=== PATIENT | female | born 1975 | race Caucasian/White ===

== ENCOUNTER 2021-08-06 21:17 | Observation (INO) | payer MEDICAID, SELFPAY ==
[2021-08-06 21:42] VITALS: BP 140/89; PULSE 64; RESP 18; TEMP 36.6; O2SAT 99; BMI 30.7
[2021-08-06 22:07] LABS: Glucose Point of Care 124 mg/dL (70-110)
--- NOTE | 2021-08-06 22:09 | XRR_ITS ---
PROCEDURE INFORMATION: Exam: XR Right Foot Exam date and time: 08/06/2021 10:09 PM Age: 45 years old Clinical indication: Condition or disease; Other: Chronic diabetic infection; Prior surgery; Surgery date: 6+ months; Surgery type: Hardware placed in great toe November 2020; Additional info: Chronic foot infection TECHNIQUE: Imaging protocol: XR Right foot. Views: 3 or more views. COMPARISON: No relevant prior studies available. FINDINGS: No old studies are available for comparison purposes. The patient is status post fusion between the 1st metatarsal and proximal phalanx with plate and screws. There is some irregularity along the 1st MTP joint. There is no acute fracture. The remaining digits are well maintained. There is no periosteal reaction. There is no acute bony destruction. There is mild soft tissue swelling. XR/XR foot RT min 3V* [id number] IMPRESSION: 1. Postop changes involving the 1st MTP joint. There is some irregularity along the joint space. Comparison to old studies would be helpful. Please note plain films are somewhat insensitive for the evaluation of the osteomyelitis. 2. There is no acute fracture, periosteal reaction or acute bony destruction.
--- NOTE | 2021-08-06 22:09 | XRR_ITS ---
PROCEDURE INFORMATION: Exam: XR Chest Exam date and time: 08/06/2021 10:09 PM Age: 45 years old Clinical indication: Condition or disease; Other: Diabetic complications; Prior surgery; Surgery date: 6+ months; Surgery type: Stimulator placed; Additional info: Hypoglycemia TECHNIQUE: Imaging protocol: XR of the chest. Views: 1 view. COMPARISON: No relevant prior studies available. FINDINGS: The lungs are clear of infiltrate. There are no pleural effusions or pneumothorax. The heart size and pulmonary vascularity are normal. Stimulator leads are seen within the thoracic spine. XR/XR chest 1V portable [id number] IMPRESSION: No active disease.
--- NOTE | 2021-08-06 22:35 | W.ED.GENADLT ---
HPI - General Adult General: Chief complaint: ER Hold Stated complaint: diabetic issues Time Seen by Provider: 08/06/21 21:40 History of Present Illness: 45-year-old female whom I do not have a record of previous visits. She presents with persistent low blood sugar since last night. She notes that she has had pancreas surgery in the past for a pancreatic mass, and has episodes with hypoglycemia. She has had for glucagon shots since last night to keep her sugar up. She notes a couple of episodes of blood sugars in the 30s and 40s today despite this, with seizures during those episodes. She notes pain all over following her seizures. She called an ambulance as she was unable to keep her blood sugar up. She says there are times when her blood sugar can drop by one-point per minute. She presents on a D10 drip. Onset (ago): hour(s) Location: head and lower extremity Severity: moderate Quality: other Pain Consistency: constant Relieving factors: none Exacerbating factors: none Associated symptoms: Reports confusion (With low blood sugar episodes), diaphoresis, decreased appetite, headache(s), nausea, seizures and weakness (Generalized); Deny chest pain, cough, dyspnea, fevers/chills, palpitations, short of breath or vomiting Review of Systems Const: Reports: diaphoresis Card: Denies: chest pain or palpitations Resp: Denies: dyspnea GI: Reports: nausea; Denies: vomiting Neuro: Reports: headache(s) and confusion (With low blood sugar episodes) [facility] ED PFSH: Medical History (Updated 08/07/21 @ 06:07 by Roberth King MD) History of depression History of factor V Leiden mutation History of hypoglycemia Pancreatic neoplasm Surgical History History of cholecystectomy Family History (Updated 08/07/21 @ 06:06 by Roberth King MD) Mother CAD (coronary artery disease) Father Diabetes Social History (Updated 08/07/21 @ 06:06 by Roberth King MD) Smoking and tobacco status: never smoked Alcohol intake: never Substance/Drug Use: never Physical Exam Const: COMMON NORMALS: patient oriented x3 GENERAL APPEARANCE: cooperative; not frail appearing HENMT: COMMON NORMALS: normocephalic, atraumatic and Normal external nose present HEAD & SCALP: normocephalic and atraumatic NOSE: Normal external nose present Eye: COMMON NORMALS: Equal, round and reactive pupils present and EOMs intact bilaterally PUPIL: Yes Equal, round and reactive pupils present Chest: COMMONS NORMALS: normal inspection of the chest Resp: COMMON NORMALS: normal respiratory effort, No use of accessory muscles and clear to auscultation bilaterally AUSCULTATION: clear to auscultation bilaterally Cardio: COMMON NORMALS: regular rate and regular rhythm RATE: regular rate RHYTHM: regular rhythm GI: COMMON NORMALS: Normal to inspection, nondistended, normoactive bowel sounds present and Soft to palpation PALPATION: Yes Soft to palpation and Yes Tenderness to palpation present (GI) (Minimal epigastric) Extremity: NARRATIVE EXTREMITY EXAM: Exam of the right foot reveals a surgical scar over her right first MTP. There is tenderness with some swelling here. There is no redness or warmth. She has good capillary refill. Neuro: COMMON NORMALS: patient oriented x3 Course Consultations: Consultation #1: mason Vital Signs: Vital signs: Vital Signs Temperature 98.2 F 08/07/21 20:00 Pulse Rate 68 08/07/21 20:00 Respiratory Rate 17 08/07/21 20:00 Blood Pressure 154/85 08/07/21 20:00 Pulse Oximetry 100 08/07/21 20:00 [facility] - General Adult Medical Decision Making 46-year-old female with persistent hypoglycemia. CBC is normal. Potassium is 3.4. Other labs appear stable. While on D10, sugars are staying relatively stable, not necessarily increasing. We shot the D10 off, and watch her sugar steadily fall over 2 hours to 60. She received an amp of D50 with increased blood sugar. D10 was placed back on the patient at maintenance. She will have to be observed, as her sugar is not staying up appropriately. Hospitalist agreed to observe. Lab Data : 08/06/21 22:57 08/06/21 22:57 Radiology Impressions Chest X-Ray 08/06/21 22:09 IMPRESSION: No active disease. Foot X-Ray 08/06/21 22:09 IMPRESSION: 1. Postop changes involving the 1st MTP joint. There is some irregularity along the joint space. Comparison to old studies would be helpful. Please note plain films are somewhat insensitive for the evaluation of the osteomyelitis. 2. There is no acute fracture, periosteal reaction or acute bony destruction. Abdomen/Pelvis CT 08/07/21 05:19 IMPRESSION: Small amount of fluid noted in the colon. No dilated bowel loops. No high-grade obstruction. Correlate clinically for history of diarrheal illness. Laboratory Results WBC 9.6 10^3/uL (4.0-10.0) 08/06/21 22:57 RBC 4.54 10^6/uL (4.1-5.3) 08/06/21 22:57 Hgb 13.9 g/dL (11.5-15.3) 08/06/21 22:57 Hct 41.7 % (37.0-47.0) 08/06/21 22:57 MCV 91.9 fl (81-99) 08/06/21 22:57 MCH 30.6 pg (28.0-34.0) 08/06/21 22:57 MCHC 33.3 g/dL (30.0-36.0) 08/06/21 22:57 RDW 14.0 % (12.1-15.1) 08/06/21 22:57 Plt Count 211 10^3/cmm (130-400) 08/06/21 22:57 MPV 11.8 fL (7.4-10.4) H 08/06/21 22:57 Neut % (Auto) 54.5 % 08/06/21 22:57 Lymph % (Auto) 37.1 % 08/06/21 22:57 Mccormick % (Auto) 6.2 % 08/06/21 22:57 Eos % (Auto) 1.7 % 08/06/21 22:57 Baso % (Auto) 0.3 % 08/06/21 22:57 Neut # (Auto) 5.21 10^3/uL (1.8-7.7) 08/06/21 22:57 Lymph # (Auto) 3.6 10^3/uL (0.8-4.8) 08/06/21 22:57 Mccormick # (Auto) 0.6 10^3/uL (0.2-0.9) 08/06/21 22:57 Eos # (Auto) 0.2 10^3/uL (0.0-0.8) 08/06/21 22:57 Baso # (Auto) 0.0 10^3/uL (0.0-0.1) 08/06/21 22:57 Nucleated RBC % (auto) 0 % 08/06/21 22:57 Nucleated RBCs # 0.0 /100WBC 08/06/21 22:57 PT 12.80 SECONDS (12.1-14.9) 08/06/21 22:57 INR 0.94 (0.8-1.2) 08/06/21 22:57 Sodium 140 mmol/L (136-145) 08/06/21 22:57 Potassium 3.4 mmol/L (3.5-5.1) L 08/06/21 22:57 Chloride 107 mmol/L (98-107) 08/06/21 22:57 Carbon Dioxide 23 mmol/L (22-29) 08/06/21 22:57 Anion Gap 13.4 (5-19) 08/06/21 22:57 BUN 9 mg/dL (6-20) 08/06/21 22:57 Creatinine 0.7 mg/dL (0.5-0.9) 08/06/21 22:57 GFR Calculation 91.3 mL/min (90-130) 08/06/21 22:57 Glucose 103 mg/dL (65-115) 08/06/21 22:57 POC Glucose 194 mg/dL (70-110) H 08/07/21 05:13 Estimat Average Glucose 126 08/06/21 22:57 Hemoglobin A1c 6.0 % (4.0-6.0) 08/06/21 22:57 Calculated Osmolality 289 mOsm/kg (285-295) 08/06/21 22:57 Lactate 0.8 mmol/L (0.5-2.2) 08/06/21 22:57 Calcium 8.3 mg/dL (8.5-10.5) L 08/06/21 22:57 Total Bilirubin 0.3 mg/dL (0.15-1.2) 08/06/21 22:57 AST 16 U/L (0-32) 08/06/21 22:57 ALT 25 U/L (0-33) 08/06/21 22:57 Alkaline Phosphatase 97 IU/L (35-105) 08/06/21 22:57 C-Reactive Protein 2.3 mg/L (0.0-4.9) 08/06/21 22:57 Total Protein 6.5 g/dL (6.6-8.7) L 08/06/21 22:57 Albumin 4.0 g/dL (3.5-5.2) 08/06/21 22:57 Globulin 2.5 g/dL (1.3-4.6) 08/06/21 22:57 Amylase 27 U/L (28-100) L 08/06/21 22:57 Lipase 18 U/L (13-60) 08/06/21 22:57 Lipase Cancelled 08/06/21 22:57 Procalcitonin 0.43 ng/mL (0-0.5) 08/06/21 22:57 TSH 1.69 uIU/mL (0.27-4.20) 08/06/21 22:57 Urine Color Straw (Yellow) 08/06/21 21:23 Urine Appearance Clear (CLEAR) 08/06/21 21:23 Urine pH 6.5 (5-7) 08/06/21 21:23 Ur Specific Bradford 1.005 (1.005-1.030) 08/06/21 21:23 Urine Protein Neg (Negative) 08/06/21 21:23 Urine Glucose (UA) Norm (Normal) 08/06/21 21:23 Urine Ketones Negative (Negative) 08/06/21 21:23 Urine Blood Neg (Negative) 08/06/21 21:23 Urine Nitrate Negative (Negative) 08/06/21 21:23 Urine Bilirubin Neg (Negative) 08/06/21 21:23 Urine Urobilinogen Norm mg/dL (Negative) 08/06/21 21:23 Ur Leukocyte Esterase Negative (Negative) 08/06/21 21:23 Discharge Plan Discharge Patient Disposition: Admitted As Inpatient Admit Provider: Roberth King Condition: Stable Coding Level of Care Code ED Clerical Dentist Assistant for Chg Fwd Exam Detailed
[2021-08-06] MEDS: dextrose 10% 1,000 ML 125 ML IV (23:00)
[2021-08-06 23:05] LABS: Basophils % 0.3 %; Eosinophils # 0.2 10^3/uL (0.0-0.8); Eosinophils % 1.7 %; Hematocrit 41.7 % (37.0-47.0); Hemoglobin 13.9 g/dL (11.5-15.3); Lymphocytes # 3.6 10^3/uL (0.8-4.8); Lymphocytes % 37.1 %; Mean Corpuscular HGB Conc 33.3 g/dL (30.0-36.0); Mean Corpuscular Hemoglobin 30.6 pg (28.0-34.0); Mean Corpuscular Volume 91.9 fl (81-99); Mean Platelet Volume 11.8 fL (7.4-10.4); Monocytes # 0.6 10^3/uL (0.2-0.9); Monocytes % 6.2 %; Neutrophils # 5.21 10^3/uL (1.8-7.7); Neutrophils % 54.5 %; Nucleated Red Blood Cells % 0 %; Platelet Count 211 10^3/cmm (130-400); Red Blood Count 4.54 10^6/uL (4.1-5.3); White Blood Count 9.6 10^3/uL (4.0-10.0)
[2021-08-06 23:21] LABS: Lactate (Lactic Acid level) 0.8 mmol/L (0.5-2.2)
[2021-08-06 23:25] LABS: Alanine Aminotransferase 25 U/L (0-33); Alkaline Phosphatase 97 IU/L (35-105); Anion Gap 13.4 (5-19); Aspartate Amino Transferase 16 U/L (0-32); Blood Urea Nitrogen 9 mg/dL (6-20); C Reactive Protein 2.3 mg/L (0.0-4.9); Calcium 8.3 mg/dL (8.5-10.5); Carbon Dioxide 23 mmol/L (22-29); Chloride 107 mmol/L (98-107); Globulin 2.5 g/dL (1.3-4.6); Glomerular Filtration Rate 91.3 mL/min (90-130); Glucose 103 mg/dL (65-115); Lipase 18 U/L (13-60); Osmolality Calculated 289 mOsm/kg (285-295); Potassium 3.4 mmol/L (3.5-5.1); Sodium 140 mmol/L (136-145); Total Bilirubin 0.3 mg/dL (0.15-1.2); Total Protein 6.5 g/dL (6.6-8.7)
[2021-08-06 23:32] LABS: Procalcitonin 0.43 ng/mL (0-0.5)
[2021-08-06 23:40] LABS: Slide Review Slide Review Perform
[2021-08-06 23:48] LABS: INR 0.94 (0.8-1.2)
[2021-08-07] VITALS (10 sets, daily range): BP systolic 117–154; BP diastolic 65–90; PULSE 67–88; RESP 16–20; TEMP 36.7–36.8; O2SAT 94–100; BMI 30.7
[2021-08-07] MEDS: morphine 4 mg/mL SDV 1 mL IVP ×2 (00:27→06:09)
[2021-08-07 00:58] LABS: Glucose Point of Care 188 mg/dL (70-110)
[2021-08-07 01:45] LABS: Add Urine Microscopic? NO; Charge for UA Resulting for Rev
[2021-08-07 01:53] LABS: Bilirubin Urine Neg (Negative); Blood Urine Neg (Negative); Glucose Urine UA Norm (Normal); Ketones Urine Negative (Negative); Leukocyte Esterase Urine Negative (Negative); Nitrate Urine Negative (Negative); Protein Urine Neg (Negative); Specific Gravity, Urine 1.005 (1.005-1.030); Urine Appearance Clear (CLEAR); Urine Color Straw (Yellow); Urobilinogen Urine Norm (Negative); pH Urine 6.5 (5-7)
[2021-08-07 02:46] LABS: Glucose Point of Care 114 mg/dL (70-110)
[2021-08-07] MEDS: dextrose 50% syringe 50 mL (04:00)
[2021-08-07 04:48] LABS: Glucose Point of Care 60 mg/dL (70-110)
[2021-08-07 05:18] LABS: Glucose Point of Care 194 mg/dL (70-110)
--- NOTE | 2021-08-07 05:19 | CTR_ITS ---
PROCEDURE INFORMATION: Exam: CT Abdomen And Pelvis With Contrast Exam date and time: 08/07/2021 5:19 AM Age: 46 years old Clinical indication: Abdominal pain; Localized; Right upper quadrant (ruq); Prior surgery; Surgery type: Gb. Csection. Hysterectomy. ; Patient HX: C/O ruq pain. ; Additional info: Ruq pain per Dr. King TECHNIQUE: Imaging protocol: Computed tomography of the abdomen and pelvis with contrast. Radiation optimization: All CT scans at this facility use at least one of these dose optimization techniques: automated exposure control; mA and/or kV adjustment per patient size (includes targeted exams where dose is matched to clinical indication); or iterative reconstruction. Contrast material: OMNI 300; Contrast volume: 95 ml; Contrast route: INTRAVENOUS (IV); COMPARISON: CR (CHEST, ) 08/06/2021 10:18 PM RADIATION DOSE METRICS: Total DLP (mGy-cm): 1683.64 FINDINGS: Tubes, catheters and devices: Nerve stimulator device noted in the soft tissues of the left lower back with dorsally placed intrathecal leads. Liver: No mass. Gallbladder and bile ducts: Status post cholecystectomy. Pancreas: No ductal dilation. Spleen: No splenomegaly. Adrenal glands: Normal. No mass. Kidneys and ureters: No hydronephrosis. Stomach and bowel: Small amount of fluid noted in the colon. No dilated bowel loops. No high-grade obstruction. Appendix: No evidence of appendicitis. Intraperitoneal space: No free air. No significant fluid collection. Vasculature: No abdominal aortic aneurysm. Lymph nodes: No enlarged lymph nodes. Urinary bladder: Unremarkable as visualized. Reproductive: Status post hysterectomy. Bones/joints: Unremarkable. No acute fracture. Soft tissues: Small fat containing umbilical hernia. CT/CT abdomen pelvis w con* [id number] IMPRESSION: Small amount of fluid noted in the colon. No dilated bowel loops. No high-grade obstruction. Correlate clinically for history of diarrheal illness.
[2021-08-07] MEDS: iohexol 300 mg/mL 100 mL Btl IV (05:54)
--- NOTE | 2021-08-07 06:00 | PM.HP ---
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 Patient tells me that ever since her resection for her tumor of her pancreatic head, she is suffered acute attacks of hypoglycemia. She has had extensive work-up in the [facility], including testing for insulinoma which came back negative. She typically tells me that over for her hypoglycemia episodes it can take her up to a day to come out of hypoglycemia. She tells me that her physicians at the [facility] told her that after her pancreatic surgery it seems as if her pancreas has an overcorrected response to meals, and that is why she runs hypoglycemic. She has been on multiple medications including Creon which have not yielded significant outcomes. She tells me that her current hypoglycemic episode started on the 27th in the evening, she noticed feeling hypoglycemic, her blood sugars were in the 30s, she felt lightheaded, felt unwell, her blood sugars were in the 30s, she noted that she possibly could have had seizure episodes, she has been eating and drinking as best she can but she is not been able to keep up her blood sugars, as her hypoglycemic episodes persisted she called EMS, EMS had placed her on a D10 drip. In the emergency room she was weaned off D10 drip, but her blood sugars dropped into the low 60s, was given an amp of D50 and placed back on the D10 drip, hospitalist team was called for admission Review of Systems Const: Denies: fever(s), chills, fatigue or malaise Eyes: Denies: change in vision or blurry vision ENMT: Denies: nasal congestion Resp: Denies: dyspnea, productive cough, non-productive cough or wheezing GI: Denies: abdominal pain, nausea, vomiting, hematemesis, diarrhea, constipation, hematochezia or melena : Denies: flank pain, dysuria or urinary frequency Musc: Denies: neck pain or back pain Skin/Breast: Denies: rash Neuro: Denies: headache(s), dizziness or vertigo Psych: Denies: anxiety or depression Endo: Denies: polyuria or polydipsia Medications/Allergies Allergies Allergy/AdvReac Type Severity Reaction Status Date / Time ciprofloxacin Allergy ALGY-Anaphy Verified 08/06/21 21:52 laxis floxacillin Allergy ALGY-Anaphy Verified 08/06/21 21:52 laxis Penicillins Allergy ALGY-Hives Verified 08/06/21 21:52 PFSH Acute PFSH: Medical History (Updated 08/07/21 @ 06:07 by Roberth King MD) History of depression History of factor V Leiden mutation History of hypoglycemia Pancreatic neoplasm Surgical History History of cholecystectomy Family History (Updated 08/07/21 @ 06:06 by Roberth King MD) Mother CAD (coronary artery disease) Father Diabetes Social History (Updated 08/07/21 @ 06:06 by Roberth King MD) Smoking and tobacco status: never smoked Alcohol intake: never Substance/Drug Use: never Vitals/I&O/Wt Last Vital Signs Temp 97.9 F 08/06/21 21:42 Pulse 80 08/07/21 05:35 Resp 18 08/07/21 05:35 BP 118/65 08/07/21 05:35 Pulse Ox 95 08/07/21 05:35 Weight last 48 hrs Weight 86.183 kg Physical Exam Const: COMMON NORMALS: no acute distress and patient oriented x3 HENMT: COMMON NORMALS: normocephalic HEAD & SCALP: normocephalic Resp: COMMON NORMALS: normal respiratory effort, No retractions, No use of accessory muscles and clear to auscultation bilaterally AUSCULTATION: clear to auscultation bilaterally Cardio: COMMON NORMALS: no JVD, regular rate, regular rhythm, S1 normal heart sound present and S2 normal heart sound present RATE: regular rate RHYTHM: regular rhythm HEART SOUNDS: S1 normal heart sound present and S2 normal heart sound present GI: COMMON NORMALS: Normal to inspection, nondistended, normoactive bowel sounds present, Soft to palpation, non-tender, No hepatosplenomegaly present, no masses and no bruits PALPATION: Yes Soft to palpation and Yes No hepatosplenomegaly present Extremity: COMMON NORMALS: capillary refill normal, no clubbing, cyanosis or edema, no calf tenderness and no pedal edema Neuro: COMMON NORMALS: patient oriented x3 Psych: COMMON NORMALS: mental status grossly normal Data : 08/06/21 22:57 08/06/21 22:57 A&P Assessment and plan (1) Hypoglycemia: Status: Acute Plan Acute on chronic hypoglycemia -Etiology possibly secondary to pancreatic dysfunction -Has had work-up for insulinoma in the past -We will order TSH, A1c, CT scan abdomen pelvis -Continue D10 at 125 cc check blood sugars every hour -Add 9 AM, wean off D10, monitor blood sugars for the next 6 hours if reasonable will discharge -Check blood sugars every hour -Xarelto for DVT prophylaxis Patient is a DNR/DNI, confirmed this multiple times Attestations Medical Necessity Statement*: Patient requires hospitalization, outpatient observation for hypoglycemia Coding Level of Care Code Acute International Relations Professor for Chg Fwd History Detailed Exam Detailed Medical Decision Making Moderate Complexity Diagnoses Hypoglycemia E16.2 Time Spent (min) 45
[2021-08-07] MEDS: dextrose 10% 1,000 ML 125 ML IV ×2 (06:27→17:13)
--- NOTE | 2021-08-07 07:08 | PC.NURSE ---
PATIENT DEXTROSE PAUSED DUE TO IV REMOVED BY PATIENT. PATIENT STATES IT GOT CAUGHT ON MY SHIRT.
[2021-08-07 08:10] LABS: Thyroid Stimulating Hormone 1.69 uIU/mL (0.27-4.20)
[2021-08-07 08:13] LABS: Amylase 27 U/L (28-100)
[2021-08-07 08:26] LABS: Estmated Average Glucose 126
[2021-08-07 08:58] LABS: Glucose Point of Care 102 mg/dL (70-110)
[2021-08-07] MEDS: rivaroxaban 10 mg Tablet 20 MG PO (09:24)
[2021-08-07] MEDS: acetaminophen 325 mg Tablet 650 MG PO (09:49)
--- NOTE | 2021-08-07 10:18 | PC.NURSE ---
PATIENT IS TEARFUL STATING THAT SHE DOESN'T LIKE TO COMPLAIN BUT SHE IS HURTING. NURSE EDUCATED THAT IT OK TO BE TEARFUL AND COMPLAIN AND TO BE UPSET. PATIENT SPOKE TO PROVIDER ABOUT PAIN MEDICATION.
[2021-08-07] MEDS: ondansetron 2 mg/ML SDV 2 mL 4 MG IVP ×2 (10:28→20:40)
[2021-08-07] MEDS: HYDROcodone-acetaminophen 5-325 mg Tablet 1 TAB PO ×2 (10:28→20:40)
[2021-08-07 11:30] LABS: Glucose Point of Care 134 mg/dL (70-110)
[2021-08-07 14:01] LABS: Glucose Point of Care 111 mg/dL (70-110)
--- NOTE | 2021-08-07 16:20 | PC.CHAP ---
Pastoral Care Encounter/Spiritual Assessment Type of Contact [] Declined echometer engineer visit [] Patient/Family/Request visit [] Outpatient visit [] Follow-up visit [] Physician referral [] Code/Alert [] Routine visit [] Staff referral [] Actively dying [] Patient sleeping [] Family support [] [] Out of room [] Palliative care [] [XX] Receiving care in room [] Pre-surgical visit [] Trauma [] Long length of stay [] ICU visit [] Other: Relational/Emotional Strength [] Patient feels connected with others/family/visitors/staff [] Distress [] Loneliness/isolation [] Abandonment Spirituality of Patient [] Person of Alicia [] Attends Temple of their Alicia [] Believes in Prayer [] Reads Bible or Latter Day materials [] There are Spiritual issues to be addressed Manager Infrastructure Interventions [] Prayer [] Active listening [] Non-anxious presence [] Spiritual/emotional support [] Crisis/trauma care [] Spiritual counseling [] Bereavement support [] Provided bereavement packet [] Provided Bible/devotional materials [] Provided toy/stuffed animal, coloring book to patient or family member [] Provided Communion [] Anointing/[place] [] Salvation [] Completed spiritual assessment [] Other: Impact on Illness or Injury [] Angry [] Fearful [] Anxious [] Often cries [] Exhaustion [] Unable to work [] Unable to attend lutheran [] Unable to walk/stand [] Unable to read [] Unable to drive [] Unable to eat/drink [] Unable to sleep [] Unable to be with family [] Patient intubated [] Other: Summary Time spent with patient
[2021-08-07 17:02] LABS: Glucose Point of Care 158 mg/dL (70-110)
[2021-08-07 17:02] LABS: Glucose Point of Care 185 mg/dL (70-110)
[2021-08-07] MEDS: morphine 4 mg/mL SDV 1 mL 1 MG IVP (17:21)
[2021-08-07 18:14] LABS: Glucose Point of Care 183 mg/dL (70-110)
[2021-08-07 19:11] LABS: Glucose Point of Care 154 mg/dL (70-110)
[2021-08-07 19:52] LABS: Glucose Point of Care 210 mg/dL (70-110)
[2021-08-07 20:42] LABS: Glucose Point of Care 110 mg/dL (70-110)
[2021-08-07] MEDS: diphenhydrAMINE 25 mg Capsule PO (21:16)
[2021-08-07 21:53] LABS: Glucose Point of Care 100 mg/dL (70-110)
[2021-08-07 23:04] LABS: Glucose Point of Care 98 mg/dL (70-110)
[2021-08-08] VITALS: BP 129/81; PULSE 71; RESP 17; TEMP 36.6; O2SAT 97
[2021-08-08 00:11] LABS: Glucose Point of Care 103 mg/dL (70-110)
[2021-08-08] MEDS: HYDROcodone-acetaminophen 5-325 mg Tablet 1 TAB PO ×3 (00:56→10:37)
[2021-08-08 02:13] LABS: Glucose Point of Care 115 mg/dL (70-110)
[2021-08-08 02:13] LABS: Glucose Point of Care 118 mg/dL (70-110)
[2021-08-08 03:00] LABS: Glucose Point of Care 89 mg/dL (70-110)
[2021-08-08 04:00] VITALS: BP 126/78; PULSE 70; RESP 17; TEMP 36.8; O2SAT 95
[2021-08-08 04:05] LABS: Glucose Point of Care 93 mg/dL (70-110)
[2021-08-08 05:17] LABS: Glucose Point of Care 95 mg/dL (70-110)
[2021-08-08 05:59] LABS: Glucose Point of Care 104 mg/dL (70-110)
[2021-08-08 06:08] LABS: Basophils % 0.3 %; Eosinophils # 0.2 10^3/uL (0.0-0.8); Eosinophils % 2.1 %; Hematocrit 41.7 % (37.0-47.0); Hemoglobin 13.6 g/dL (11.5-15.3); Lymphocytes # 2.7 10^3/uL (0.8-4.8); Lymphocytes % 38.1 %; Mean Corpuscular HGB Conc 32.6 g/dL (30.0-36.0); Mean Corpuscular Hemoglobin 30.1 pg (28.0-34.0); Mean Corpuscular Volume 92.3 fl (81-99); Mean Platelet Volume 12.3 fL (7.4-10.4); Monocytes # 0.6 10^3/uL (0.2-0.9); Monocytes % 7.9 %; Neutrophils % 51.3 %; Nucleated Red Blood Cells % 0 %; Platelet Count 213 10^3/cmm (130-400); Red Blood Count 4.52 10^6/uL (4.1-5.3); White Blood Count 7.2 10^3/uL (4.0-10.0)
[2021-08-08] MEDS: ondansetron 2 mg/ML SDV 2 mL 4 MG IVP (06:26)
[2021-08-08 06:53] LABS: Albumin Level 3.8 g/dL (3.5-5.2); Alkaline Phosphatase 92 IU/L (35-105); Anion Gap 19.7 (5-19); Aspartate Amino Transferase 12 U/L (0-32); Blood Urea Nitrogen 7 mg/dL (6-20); Calcium 9.8 mg/dL (8.5-10.5); Carbon Dioxide 20 mmol/L (22-29); Chloride 108 mmol/L (98-107); Globulin 2.1 g/dL (1.3-4.6); Glomerular Filtration Rate 90.9 mL/min (90-130); Glucose 93 mg/dL (65-115); Magnesium 1.9 mg/dL (1.7-2.3); Osmolality Calculated 296 mOsm/kg (285-295); Phosphorus 4.9 mg/dL (2.5-4.5); Potassium 3.7 mmol/L (3.5-5.1); Sodium 144 mmol/L (136-145); Total Bilirubin 0.2 mg/dL (0.15-1.2); Total Protein 5.9 g/dL (6.6-8.7)
[2021-08-08 06:56] LABS: Glucose Point of Care 108 mg/dL (70-110)
[2021-08-08 07:07] LABS: Alanine Aminotransferase 20 U/L (0-33)
--- NOTE | 2021-08-08 07:25 | PC.NURSE ---
08/07/21 Pt requesting to stop IV fluids and monitor blood sugars. Spoke with Dr. King at 2105. Instructed to stop fluids and check sugar every 1hr. Instructed to give D50 if under 80 along with notifiying him. BS > 80 all shift.
[2021-08-08 08:21] LABS: Glucose Point of Care 113 mg/dL (70-110)
[2021-08-08 08:43] VITALS: BP 132/84; PULSE 71; RESP 17; TEMP 36.8; O2SAT 100
[2021-08-08 10:29] LABS: Glucose Point of Care 107 mg/dL (70-110)
[2021-08-08] MEDS: rivaroxaban 10 mg Tablet 20 MG PO (10:37)
--- NOTE | 2021-08-08 11:41 | PM.DCS ---
Discharge Providers Date of Admission: 08/07/21 05:35 Date of Discharge: August 08, 2021 Attending Provider at Admission: Roberth King MD Attending Provider at Discharge: Isak Jackson MD Diagnoses at Discharge Discharge Diagnosis (1) Hypoglycemia: Status: Acute Reason for Visit Reason for Visit: diabetic issues Hospital Course Hospital Course She has a history of idiopathic hypoglycemia. She has to be admitted for glucose infusions fairly regularly. She has had a fairly significant work-up according to her. She presented with hypoglycemia requiring a D10 drip overnight. She is euglycemic now off of it and she is eating and doing well. She will be allowed home with follow-up with her primary care doctor. I also going to set her up with Dr. Tadeo our fleet driver. In retrospect I wish I had drawn a C-peptide when she was hypoglycemic to rule out surreptitious use of exogenous insulin. Discharge Data Studies Completed and Pending Completed Studies During Hospitalization Category Date Time Status CT abdomen pelvis w con* [id number] Urgent Cat Scan 08/07/21 05:19 Completed XR chest 1V portable [id number] Urgent Exams 08/06/21 22:09 Completed XR foot RT min 3V* [id number] Stat Exams 08/06/21 22:09 Completed Pending at discharge Category Date Time Status Complete Blood Count w/Auto AM LABS Lab 08/09/21 04:00 Ordered Complete Blood Count w/Auto AM LABS Lab 08/10/21 04:00 Ordered Comprehensive Metabolic Panel AM LABS Lab 08/09/21 04:00 Ordered Comprehensive Metabolic Panel AM LABS Lab 08/10/21 04:00 Ordered Magnesium AM LABS Lab 08/09/21 04:00 Ordered Magnesium AM LABS Lab 08/10/21 04:00 Ordered Phosphorus AM LABS Lab 08/09/21 04:00 Ordered Phosphorus AM LABS Lab 08/10/21 04:00 Ordered Radiology Impressions Chest X-Ray 08/06/21 22:09 IMPRESSION: No active disease. Foot X-Ray 08/06/21 22:09 IMPRESSION: 1. Postop changes involving the 1st MTP joint. There is some irregularity along the joint space. Comparison to old studies would be helpful. Please note plain films are somewhat insensitive for the evaluation of the osteomyelitis. 2. There is no acute fracture, periosteal reaction or acute bony destruction. Abdomen/Pelvis CT 08/07/21 05:19 IMPRESSION: Small amount of fluid noted in the colon. No dilated bowel loops. No high-grade obstruction. Correlate clinically for history of diarrheal illness. Laboratory Results WBC 7.2 10^3/uL (4.0-10.0) 08/08/21 05:44 RBC 4.52 10^6/uL (4.1-5.3) 08/08/21 05:44 Hgb 13.6 g/dL (11.5-15.3) 08/08/21 05:44 Hct 41.7 % (37.0-47.0) 08/08/21 05:44 MCV 92.3 fl (81-99) 08/08/21 05:44 MCH 30.1 pg (28.0-34.0) 08/08/21 05:44 MCHC 32.6 g/dL (30.0-36.0) 08/08/21 05:44 RDW 14.0 % (12.1-15.1) 08/08/21 05:44 Plt Count 213 10^3/cmm (130-400) 08/08/21 05:44 MPV 12.3 fL (7.4-10.4) H 08/08/21 05:44 Neut % (Auto) 51.3 % 08/08/21 05:44 Lymph % (Auto) 38.1 % 08/08/21 05:44 [place] % (Auto) 7.9 % 08/08/21 05:44 Eos % (Auto) 2.1 % 08/08/21 05:44 Baso % (Auto) 0.3 % 08/08/21 05:44 Neut # (Auto) 3.70 10^3/uL (1.8-7.7) 08/08/21 05:44 Lymph # (Auto) 2.7 10^3/uL (0.8-4.8) 08/08/21 05:44 [place] # (Auto) 0.6 10^3/uL (0.2-0.9) 08/08/21 05:44 Eos # (Auto) 0.2 10^3/uL (0.0-0.8) 08/08/21 05:44 Baso # (Auto) 0.0 10^3/uL (0.0-0.1) 08/08/21 05:44 Nucleated RBC % (auto) 0 % 08/08/21 05:44 Nucleated RBCs # 0.0 /100WBC 08/08/21 05:44 PT 12.80 SECONDS (12.1-14.9) 08/06/21 22:57 INR 0.94 (0.8-1.2) 08/06/21 22:57 Sodium 144 mmol/L (136-145) 08/08/21 05:44 Potassium 3.7 mmol/L (3.5-5.1) 08/08/21 05:44 Chloride 108 mmol/L (98-107) H 08/08/21 05:44 Carbon Dioxide 20 mmol/L (22-29) L 08/08/21 05:44 Anion Gap 19.7 (5-19) H 08/08/21 05:44 BUN 7 mg/dL (6-20) 08/08/21 05:44 Creatinine 0.7 mg/dL (0.5-0.9) 08/08/21 05:44 GFR Calculation 90.9 mL/min (90-130) 08/08/21 05:44 Glucose 93 mg/dL (65-115) 08/08/21 05:44 POC Glucose 107 mg/dL (70-110) 08/08/21 10:18 Estimat Average Glucose 126 08/06/21 22:57 Hemoglobin A1c 6.0 % (4.0-6.0) 08/06/21 22:57 Calculated Osmolality 296 mOsm/kg (285-295) H 08/08/21 05:44 Lactate 0.8 mmol/L (0.5-2.2) 08/06/21 22:57 Calcium 9.8 mg/dL (8.5-10.5) 08/08/21 05:44 Phosphorus 4.9 mg/dL (2.5-4.5) H 08/08/21 05:44 Magnesium 1.9 mg/dL (1.7-2.3) 08/08/21 05:44 Total Bilirubin 0.2 mg/dL (0.15-1.2) 08/08/21 05:44 AST 12 U/L (0-32) 08/08/21 05:44 ALT 20 U/L (0-33) 08/08/21 05:44 Alkaline Phosphatase 92 IU/L (35-105) 08/08/21 05:44 C-Reactive Protein 2.3 mg/L (0.0-4.9) 08/06/21 22:57 Total Protein 5.9 g/dL (6.6-8.7) L 08/08/21 05:44 Albumin 3.8 g/dL (3.5-5.2) 08/08/21 05:44 Globulin 2.1 g/dL (1.3-4.6) 08/08/21 05:44 Amylase 27 U/L (28-100) L 08/06/21 22:57 Lipase 18 U/L (13-60) 08/06/21 22:57 Lipase Cancelled 08/06/21 22:57 Procalcitonin 0.43 ng/mL (0-0.5) 08/06/21 22:57 TSH 1.69 uIU/mL (0.27-4.20) 08/06/21 22:57 Urine Color Straw (Yellow) 08/06/21 21:23 Urine Appearance Clear (CLEAR) 08/06/21 21:23 Urine pH 6.5 (5-7) 08/06/21 21:23 Ur Specific [place] 1.005 (1.005-1.030) 08/06/21 21:23 Urine Protein Neg (Negative) 08/06/21 21:23 Urine Glucose (UA) Norm (Normal) 08/06/21 21:23 Urine Ketones Negative (Negative) 08/06/21 21:23 Urine Blood Neg (Negative) 08/06/21 21:23 Urine Nitrate Negative (Negative) 08/06/21 21:23 Urine Bilirubin Neg (Negative) 08/06/21 21:23 Urine Urobilinogen Norm mg/dL (Negative) 08/06/21 21:23 Ur Leukocyte Esterase Negative (Negative) 08/06/21 21:23 Vitals Last Vital Signs Temp 98.3 F 08/08/21 08:43 Pulse 71 08/08/21 08:43 Resp 17 08/08/21 08:43 BP 132/84 08/08/21 08:43 Pulse Ox 100 08/08/21 08:43 Discharge Plan Discharge Patient Disposition: Home Condition: Stable Discharge Orders: Discharge Order (Routine); Ordered 08/08/21 Ordered By: Isak Jackson Referrals: Brenna Tadeo MD [Physician] - Patient Instructions: Opioid Safety Discharge Attestations Time Spent in Discharge Care*: less than 30 min Quality Metrics Clinical Quality Measures [ No reported AMI, CVA or VTE this stay] Coding Level of Care Code Acute Chg FW DC note Diagnoses Hypoglycemia E16.2
[2021-08-08 12:32] LABS: Glucose Point of Care 116 mg/dL (70-110)
== END 2021-08-08 13:15 | disposition home or self-care (01) ==
LOC: ER 08-07 03:31 → ER IP 08-07 05:48 → MEDSURG 08-07 12:13
PROVIDERS: Admitting Provider Family Medicine; Emergency Provider Emergency Medicine; Visit Provider Internal Medicine
DX: E16.2 Hypoglycemia, unspecified (principal); Z79.01 Long term (current) use of anticoagulants; F32.9 Major depressive disorder, single episode, unspecified; D68.51 Activated protein C resistance; Z82.49 Family history of ischemic heart disease and other diseases of the circulatory system; Z83.3 Family history of diabetes mellitus; Z66 Do not resuscitate
CPT/HCPCS: 36415; 36416; 71045; 73630; 74177; 80053; 81003; 82150; 82962; 83036; 83605; 83690; 83735; 84100; 84145; 84443; 85025; 85610; 86140; 96361; 96374; 96376; 99285; G0378; J2270; J2405; Q9967

== ENCOUNTER 2021-10-20 15:35 | Inpatient (IN) | payer MEDICAID, SELFPAY ==
[2021-10-20 15:44] VITALS: BP 147/99; PULSE 78; RESP 14; O2SAT 98; BMI 37.1
--- NOTE | 2021-10-20 16:07 | W.ED.GENADLT ---
HPI - General Adult General: Chief complaint: General Medical Stated complaint: HYPOGLYCEMIA, SEIZURES Time Seen by Provider: 10/20/21 15:36 History of Present Illness: Patient is a 46-year-old female with a history of Factor V leiden deficiency, ?hypoglycemia w/ seizures presenting to the emergency room for concerns of hypoglycemia and seizures. Patient noting since yesterday night, her glucose has not been controlled. Patient reports that since yesterday night, she has had 5 episodes of seizures. Patient has had decreased p.o. intake because of the seizure since she did not have any appetite and had mild abdominal pain. Patient reports ongoing headache from the seizure. But when EMS arrived, patient was noted to have a normal glucose Patient received an amp of D50 with improvement glucose to to 300s that then gradually decreased to 145 on arrival. Patient is AAO x3, other focal complaints at this time other than headache. Denies any nausea/vomiting, fever/chills, chest pain, shortness breath, palpitation, diarrhea, melena hematochezia, no urinary complaints. Patient was diagnosed with insulinoma few years ago, has not yet follow-up with any provider. Patient reports that in the past doctors were unable to find any lesions on imaging studies but thinks she has insulinoma. Shortly after arrival, patient reports that she is feeling dejected with her conditions and tells me that it is difficult to live with her conditions and she has access to firearms and have thoughts about hurting herself. Onset: yesterday night Duration:ongoing Location:home Severity:moderate/severe Associated symptoms: Reports headache(s); Deny chest pain, dyspnea, nausea, rash, palpitations or vomiting Review of Systems Const: Denies: fever(s) or chills Eyes: Denies: change in vision ENMT: Denies: mouth pain Card: Denies: chest pain or palpitations Resp: Denies: dyspnea or non-productive cough GI: Reports: abdominal pain; Denies: nausea, vomiting or diarrhea : Denies: dysuria Musc: Denies: extremity pain Skin/Breast: Denies: rash or new lesions Neuro: Reports: headache(s) and other (+seizures); Denies: weakness in extremities Psych: Reports: other (Normal mood) [place]/Lymph: Denies: easy bruising PFSH ED PFSH: Medical History History of depression History of factor V Leiden mutation History of hypoglycemia Pancreatic neoplasm Surgical History History of cholecystectomy Family History Mother CAD (coronary artery disease) Father Diabetes Social History Smoking and tobacco status: never smoked Alcohol intake: never Physical Exam Const: COMMON NORMALS: alert HENMT: COMMON NORMALS: atraumatic HEAD & SCALP: atraumatic MOUTH: moist mucous membranes not abnormal Eye: COMMON NORMALS: EOMs intact bilaterally and conjunctivae normal CONJUNCTIVA: Yes conjunctivae normal Neck/C-Spine: COMMON NORMALS: full ROM and supple Resp: COMMON NORMALS: normal respiratory effort and clear to auscultation bilaterally AUSCULTATION: clear to auscultation bilaterally Cardio: COMMON NORMALS: regular rate RATE: regular rate GI: COMMON NORMALS: Soft to palpation PALPATION: Yes Soft to palpation OTHER: +Mid epigastric ttp. No guarding rebound, guarding, rigidity. No CVA tenderness to percussion. Neg Lay/Neg McBurney's point tenderness, no suprabupic tenderness to palpation. Extremity: COMMON NORMALS: full ROM Neuro: SENSORIUM/ORIENTATION: Yes alert MOTOR EXAM: No Abnormal motor strength present and Other motor observations present (no focal motor deficits) Psych: COMMON NORMALS: speech normal SPEECH: Yes normal speech MOOD & AFFECT: Yes euthymic mood Course Vital Signs: Vital signs: Vital Signs Temperature 97.4 F L 10/20/21 17:50 Pulse Rate 63 10/20/21 21:28 Respiratory Rate 18 10/20/21 21:28 Blood Pressure 153/91 10/20/21 17:50 Pulse Oximetry 95 10/20/21 21:28 [facility] - General Adult Medical Decision Making 46-year-old female presents emergency room for concerns return hyperglycemia and seizures in the setting of insulinoma. On physical exam, patient has mild midepigastric pain without any guarding rebound tenderness, no other signs of injuries. Fingerstick 143 on arrival that decreased to 125 and 100 on repeat 30 minutes after arrival. Patient was started on D10 drip going 125 cc/hr and octreotide 50 mcg/hr Lab electrolyte emergently not show any focal findings. Patient had repeat glucose every 30 minutes. While observed the emergency room, patient was never observed not been hypoglycemic. Patient is noted to have decreasing glucose but never hypoglycemic. We stop the D10 drip and the octreotide drip after 2 hours of infusion. Since then, patient has had normal glucose. Patient is able to tolerate p.o. without any difficulty. Shortly upon arrival, patient verbalized desire for self-harm and has access to firearm. Patient verbalized to me I do not want to live with this condition anymore and want to end my life. It is entirely unclear if patient had hypoglycemia. Previously when patient was admitted to the hospital and had an evaluation in 07/2021, C-peptide was ordered but was never sent. We will send a C-peptide today. CT of the abdomen pelvis did not show any focal findings of insulinoma/panceratic lesions. At this point time it is unclear whether patient has hypoglycemia or insulinoma. I have discussed this case with Dr. Becker who recommended placing patient in NPU for concerns of self harm and access to firearm. Given the fact that there is concern the patient has decreasing glucose however has never been hypoglycemic in the emergency room, decision was made in conjunction with Dr. Louis to have medicine be consulted on the case and help with serial glucose checks in case of hypoglycemia. Disposition: admission to N[facility] Lab Data : 10/20/21 16:33 10/20/21 16:33 Radiology Impressions Abdomen/Pelvis CT 10/20/21 16:34 IMPRESSION: No hypervascular lesion identified within the pancreas. No acute findings. Laboratory Results WBC 9.4 10^3/uL (4.0-10.0) 10/20/21 16:33 RBC 4.70 10^6/uL (4.1-5.3) 10/20/21 16:33 Hgb 14.0 g/dL (11.5-15.3) 10/20/21 16: Hct 42.4 % (37.0-47.0) 10/20/21 16:33 MCV 90.2 fl (81-99) 10/20/21 16: MCH 29.8 pg (28.0-34.0) 10/20/21 16:33 MCHC 33.0 g/dL (30.0-36.0) 10/20/21 16: RDW 14.5 % (12.1-15.1) 10/20/21 16: Plt Count 263 10^3/cmm (130-400) 10/20/21 16: MPV 12.0 fL (7.4-10.4) H 10/20/21 16: Neut % (Auto) 72.6 % 10/20/21 16: Lymph % (Auto) 20.8 % 10/20/21 16: [place] % (Auto) 5.8 % 10/20/21 16: Eos % (Auto) 0.3 % 10/20/21 16: Baso % (Auto) 0.2 % 10/20/21: Neut # (Auto) 6.79 10^3/uL (1.8-7.7) 10/20/21 16: Lymph # (Auto) 2.0 10^3/uL (0.8-4.8) 10/20/21: [place] # (Auto) 0.5 10^3/uL (0.2-0.9) 10/20/21 16: Eos # (Auto) 0.0 10^3/uL (0.0-0.8) 10/20/21 16: Baso # (Auto) 0.0 10^3/uL (0.0-0.1) 10/20/21 16: Nucleated RBC % (auto) 0 % 10/20/21 16: Nucleated RBCs # 0.0 /100WBC 10/20/21 16: Sodium 139 mmol/L (136-145) 10/20/21 16: Potassium 3.6 mmol/L (3.5-5.1) 10/20/21 16: Chloride 106 mmol/L (98-107) 10/20/21 16: Carbon Dioxide 22 mmol/L (22-29) 10/20/21 16: Anion Gap 14.6 (5-19) 10/20/21 16:33 BUN 10 mg/dL (6-20) 10/20/21 16: Creatinine 0.8 mg/dL (0.5-0.9) 10/20/21 16: GFR Calculation 77.9 mL/min (90-130) L 10/20/21 16:33 Glucose 122 mg/dL (65-115) H 10/20/21 16:33 POC Glucose 129 mg/dL (70-110) H 10/20/21 20:54 Calculated Osmolality 288 mOsm/kg (285-295) 10/20/21 16:33 Calcium 9.5 mg/dL (8.5-10.5) 10/20/21 16:33 Total Bilirubin 0.5 mg/dL (0.15-1.2) 10/20/21 16:33 AST 20 U/L (0-32) 10/20/21 16:33 ALT 23 U/L (0-33) 10/20/21 16:33 Alkaline Phosphatase 116 IU/L (35-105) H 10/20/21 16:33 Total Protein 6.8 g/dL (6.6-8.7) 10/20/21 16:33 Albumin 4.3 g/dL (3.5-5.2) 10/20/21 16:33 Globulin 2.5 g/dL (1.3-4.6) 10/20/21 16:33 Lipase 14 U/L (13-60) 10/20/21 16:33 HCG, Qual Negative (Negative) 10/20/21 17:37 Imaging Data Other Imaging: Radiologist's impression: [address] [address] [address] Scan Report Signed Patient: Amber Salcedo Unit #: [id number] : 1975 Age/Sex: 46 / F ADM Date: 10/20/21 Loc: ER Room/Bed: Attending Dr: Ordering Provider/Ordering MD: Maggie Martinez MD Date of Service: 10/20/21 Procedure(s): CT abdomen pelvis w con* [id number] Accession Number(s): [id number] Report Number: [id number] PROCEDURE INFORMATION: Exam: CT Abdomen And Pelvis With Contrast Exam date and time: 10/20/2021 6:22 PM Age: 46 years old Clinical indication: Abdominal pain; Generalized; Prior surgery; Surgery date: 6+ months; Surgery type: Manju; Patient HX: Hypoglycemic, HX of pancratic neoplasm per chart; Additional info: Eval for insulinoma TECHNIQUE: Imaging protocol: Computed tomography of the abdomen and pelvis with contrast. Radiation optimization: All CT scans at this facility use at least one of these dose optimization techniques: automated exposure control; mA and/or kV adjustment per patient size (includes targeted exams where dose is matched to clinical indication); or iterative reconstruction. Contrast material: OMNI 300; Contrast volume: 96 ml; Contrast route: INTRAVENOUS (IV);? COMPARISON: CT abdomen pelvis w con* [id number] 08/07/2021 5:53 AM RADIATION DOSE METRICS: Total DLP (mGy-cm): 1722.54 FINDINGS: Liver: Normal. No mass. Gallbladder and bile ducts: Cholecystectomy. No ductal dilation. Pancreas: No evidence of hypervascular lesions. No ductal dilation. Spleen: Normal. No splenomegaly. Adrenal glands: Normal. No mass. Kidneys and ureters: Normal. No hydronephrosis. Stomach and bowel: Unremarkable. No obstruction. No mucosal thickening. Appendix: No evidence of appendicitis. Intraperitoneal space: Unremarkable. No free air. No significant fluid collection. Arteries: Unremarkable. No abdominal aortic aneurysm. Lymph nodes: Unremarkable. No enlarged lymph nodes. Urinary bladder: Unremarkable as visualized. Reproductive: Unremarkable as visualized. Bones/joints: No acute fracture. Soft tissues: Rectus diastasis. Spinal stimulator device noted in the left low back with leads extending into the lower thoracic spine. CT/CT abdomen pelvis w con* [id number] IMPRESSION: No hypervascular lesion identified within the pancreas. No acute findings. ? Dictated By: Francisco Colvin DO Signed By: Francisco Colvin DO Signed Date/Time: 10/20/211901 DD/ 21 Discharge Plan Discharge Patient Disposition: Admitted As Inpatient Clinical Impression: Hypoglycemia, Seizure Condition: Stable Coding Level of Care Code ED K 12 Principal for Chg Fwd Exam Comprehensive
--- NOTE | 2021-10-20 16:34 | CTR_ITS ---
PROCEDURE INFORMATION: Exam: CT Abdomen And Pelvis With Contrast Exam date and time: 10/20/2021 6:22 PM Age: 46 years old Clinical indication: Abdominal pain; Generalized; Prior surgery; Surgery date: 6+ months; Surgery type: Manju; Patient HX: Hypoglycemic, HX of pancratic neoplasm per chart; Additional info: Eval for insulinoma TECHNIQUE: Imaging protocol: Computed tomography of the abdomen and pelvis with contrast. Radiation optimization: All CT scans at this facility use at least one of these dose optimization techniques: automated exposure control; mA and/or kV adjustment per patient size (includes targeted exams where dose is matched to clinical indication); or iterative reconstruction. Contrast material: OMNI 300; Contrast volume: 96 ml; Contrast route: INTRAVENOUS (IV); COMPARISON: CT abdomen pelvis w con* [id number] 08/07/2021 5:53 AM RADIATION DOSE METRICS: Total DLP (mGy-cm): 1722.54 FINDINGS: Liver: Normal. No mass. Gallbladder and bile ducts: Cholecystectomy. No ductal dilation. Pancreas: No evidence of hypervascular lesions. No ductal dilation. Spleen: Normal. No splenomegaly. Adrenal glands: Normal. No mass. Kidneys and ureters: Normal. No hydronephrosis. Stomach and bowel: Unremarkable. No obstruction. No mucosal thickening. Appendix: No evidence of appendicitis. Intraperitoneal space: Unremarkable. No free air. No significant fluid collection. Arteries: Unremarkable. No abdominal aortic aneurysm. Lymph nodes: Unremarkable. No enlarged lymph nodes. Urinary bladder: Unremarkable as visualized. Reproductive: Unremarkable as visualized. Bones/joints: No acute fracture. Soft tissues: Rectus diastasis. Spinal stimulator device noted in the left low back with leads extending into the lower thoracic spine. CT/CT abdomen pelvis w con* [id number] IMPRESSION: No hypervascular lesion identified within the pancreas. No acute findings.
[2021-10-20 16:39] LABS: Glucose Point of Care 145 mg/dL (70-110)
[2021-10-20 16:39] LABS: Glucose Point of Care 120 mg/dL (70-110)
[2021-10-20 16:41] LABS: Basophils % 0.2 %; Eosinophils % 0.3 %; Hematocrit 42.4 % (37.0-47.0); Lymphocytes % 20.8 %; Mean Corpuscular Hemoglobin 29.8 pg (28.0-34.0); Mean Corpuscular Volume 90.2 fl (81-99); Monocytes # 0.5 10^3/uL (0.2-0.9); Monocytes % 5.8 %; Neutrophils # 6.79 10^3/uL (1.8-7.7); Neutrophils % 72.6 %; Nucleated Red Blood Cells % 0 %; Platelet Count 263 10^3/cmm (130-400); Red Cell Distribution Width 14.5 % (12.1-15.1); White Blood Count 9.4 10^3/uL (4.0-10.0)
[2021-10-20] MEDS: dextrose 10% 1,000 ML 125 ML IV (16:48)
[2021-10-20 16:49] VITALS: RESP 16; O2SAT 95
[2021-10-20] MEDS: morphine 4 mg/mL SDV 1 mL IVP (16:49)
[2021-10-20 17:04] LABS: Alanine Aminotransferase 23 U/L (0-33); Albumin Level 4.3 g/dL (3.5-5.2); Alkaline Phosphatase 116 IU/L (35-105); Anion Gap 14.6 (5-19); Aspartate Amino Transferase 20 U/L (0-32); Blood Urea Nitrogen 10 mg/dL (6-20); Calcium 9.5 mg/dL (8.5-10.5); Carbon Dioxide 22 mmol/L (22-29); Chloride 106 mmol/L (98-107); Globulin 2.5 g/dL (1.3-4.6); Glomerular Filtration Rate 77.9 mL/min (90-130); Glucose 122 mg/dL (65-115); Lipase 14 U/L (13-60); Osmolality Calculated 288 mOsm/kg (285-295); Potassium 3.6 mmol/L (3.5-5.1); Sodium 139 mmol/L (136-145); Total Bilirubin 0.5 mg/dL (0.15-1.2); Total Protein 6.8 g/dL (6.6-8.7)
[2021-10-20] MEDS: sodium chloride 0.9% 1,000 ML 999 ML IV (17:04)
[2021-10-20 17:09] LABS: Glucose Point of Care 100 mg/dL (70-110)
[2021-10-20 17:37] LABS: Glucose Point of Care 117 mg/dL (70-110)
[2021-10-20 17:37] LABS: Glucose Point of Care > 600 mg/dL (70-110)
[2021-10-20 17:50] VITALS: BP 153/91; PULSE 65; RESP 18; TEMP 36.3; O2SAT 98
[2021-10-20] MEDS: octreotide 500 MCG in sodium chloride 0.9% (100 ml) 100 ML 10.1 MCG IV (18:05)
[2021-10-20 18:06] LABS: HCG, Serum Qual Negative (Negative)
--- NOTE | 2021-10-20 18:06 | PC.NURSE ---
Verified medication and what other medication that it can run with. Okay with dextrose per pharmacist. delay in administration start due to double check to make sure it was compatible.
[2021-10-20] MEDS: iohexol 300 mg/mL 100 mL Btl IV (18:33)
[2021-10-20 19:13] VITALS: RESP 18
[2021-10-20] MEDS: HYDROmorphone 1 mg/mL INJ 1 mL 0.5 MG IVP (19:13)
[2021-10-20 19:35] LABS: Glucose Point of Care 140 mg/dL (70-110)
--- NOTE | 2021-10-20 20:02 | PC.NURSE ---
stopped infusions per dr Martinez to get a 15 min check on blood sugar.
[2021-10-20 20:58] LABS: Glucose Point of Care 137 mg/dL (70-110)
[2021-10-20 20:58] LABS: Glucose Point of Care 129 mg/dL (70-110)
[2021-10-20 21:28] VITALS: PULSE 63; RESP 18; O2SAT 95
--- NOTE | 2021-10-20 22:10 | PC.NURSE ---
kiet @ , @, gave oj per dr toro @1, accucheck per dr toro at [address] TORO
[2021-10-20 22:12] LABS: Glucose Point of Care 115 mg/dL (70-110)
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
--- NOTE | 2021-10-20 22:50 | PC.NURSE ---
sandostatin, and dextrose 10 % stopped at [address] MCCARTHY
--- NOTE | 2021-10-20 22:54 | PC.NURSE ---
attempted report to liz SHEARER stated he would call back in 5 minutes,
[2021-10-20 23:00] LABS: Estmated Average Glucose 120; Hemoglobin A1C 5.8 % (4.0-6.0)
[2021-10-20 23:36] LABS: Glucose Point of Care 117 mg/dL (70-110)
[2021-10-20 23:42] LABS: Free T4 Free Thyroxine 0.96 ng/dL (0.82-1.77); Magnesium 2.1 mg/dL (1.7-2.3); Thyroid Stimulating Hormone 0.44 uIU/mL (0.27-4.20)
[2021-10-20 23:54] LABS: Amphetamines Screen Urine Negative (Negative); Barbiturates Screen Urine Negative (Negative); Benzodiazepines Screen Urine Negative (Negative); Cocaine Screen Urine Negative (Negative); Opiate Screen Urine Negative (Negative); PCP Screen Urine Negative (Negative); THC Screen Urine Negative (Negative)
[2021-10-21 00:51] VITALS: BP 138/80; PULSE 86; RESP 18; O2SAT 96
[2021-10-21 01:03] LABS: Glucose Point of Care 99 mg/dL (70-110)
[2021-10-21 01:40] VITALS: BP 157/99; PULSE 67; RESP 17; TEMP 36.4; O2SAT 98
[2021-10-21] MEDS: fentaNYL 25 mcg Patch 1 PATCH TRANSDERMA (01:48)
[2021-10-21 01:54] LABS: Folate Level 6.6 ng/mL (4.8-37.3)
[2021-10-21 02:01] LABS: 25 Hydroxy Vitamin D 36 ng/mL (30-100); Ferritin 119 ng/mL (15-150); Iron 63 ug/dL (37-145); Percent Saturation 20.1 % (20-50); Total Iron Binding Capacity 313 mcg/dl; Unsaturated Iron Binding 250 ug/dL (112-347); Vitamin B12 177 pg/mL (232-1245)
[2021-10-21] MEDS: HYDROcodone-acetaminophen 5-325 mg Tablet 1 TAB PO ×3 (02:29→16:21)
[2021-10-21] MEDS: pregabalin 150 mg Capsule PO ×3 (02:56→17:39)
[2021-10-21] MEDS: buPROPion XL (24 HR) 150 mg Tablet PO ×2 (02:57→20:40)
[2021-10-21] MEDS: topiramate 100 mg Tablet 200 MG PO ×3 (02:57→17:39)
[2021-10-21] MEDS: citalopram 20 mg Tablet 40 MG PO (02:57)
--- NOTE | 2021-10-21 03:11 | PC.NURSE ---
PRN ADMIN: Patietn c/o generalized body pain 10/10, PRN hydrocodone given as ordered with noted effectiveness.
[2021-10-21 04:00] LABS: Hepatitis B Core IgM Non-Reactive (Nonreactive); Hepatitis B Surface Antigen Non-Reactive (Nonreactive); Hepatitis C Virus Antibody Non-Reactive (Nonreactive)
[2021-10-21 04:02] LABS: HIV 1 & 2 Antibody Non-Reactive (Non-Reactiv); HIV 1 & 2 Antigen Non-Reactive (Non-Reactiv)
[2021-10-21 06:00] VITALS: BP 175/72; PULSE 62; RESP 18; TEMP 36.8; O2SAT 98
[2021-10-21 06:01] LABS: Glucose Point of Care 123 mg/dL (70-110)
[2021-10-21 06:01] LABS: Glucose Point of Care 104 mg/dL (70-110)
[2021-10-21 06:01] LABS: Glucose Point of Care 110 mg/dL (70-110)
[2021-10-21 09:09] LABS: Glucose Point of Care 124 mg/dL (70-110)
[2021-10-21] MEDS: potassium chloride ER 20 mEq Tablet PO (09:12)
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
[2021-10-21 13:57] VITALS: BP 124/66; PULSE 61; RESP 19; TEMP 36.4; O2SAT 96
--- NOTE | 2021-10-21 16:06 | PC.SOCIAL ---
Patient did not attend group.
[2021-10-21 20:30] VITALS: BP 151/79; PULSE 58; RESP 16; TEMP 36.9; O2SAT 95
[2021-10-21] MEDS: trazodone 50 mg Tablet PO (20:40)
[2021-10-21] MEDS: escitalopram 10 mg Tablet 40 MG PO (20:40)
--- NOTE | 2021-10-21 20:40 | PC.NURSE ---
per Dr Becker do not wake patient to take blood sugars
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
[2021-10-21 22:33] LABS: Rapid Plasma Reagin Syphilis Nonreactive (Nonreactive)
[2021-10-22 06:00] VITALS: BP 151/79; PULSE 58; RESP 16; TEMP 36.9; O2SAT 95
--- NOTE | 2021-10-22 06:25 | PC.NURSE ---
Her finger stick this morning was 85.
[2021-10-22] MEDS: HYDROcodone-acetaminophen 5-325 mg Tablet 1 TAB PO ×3 (06:26→18:20)
[2021-10-22 06:29] VITALS: BP 107/67; PULSE 64; RESP 16; TEMP 36.9; O2SAT 97
[2021-10-22] MEDS: fixodent 39 gm Tube 1 APPLIC DENTAL (07:55)
[2021-10-22] MEDS: cyanocobalamin 1,000 mcg Tablet 500 MCG PO (08:39)
[2021-10-22] MEDS: topiramate 100 mg Tablet 200 MG PO ×2 (08:40→17:34)
[2021-10-22] MEDS: pregabalin 150 mg Capsule PO ×2 (08:40→17:34)
[2021-10-22] MEDS: potassium chloride ER 20 mEq Tablet PO (08:40)
[2021-10-22] MEDS: rivaroxaban 10 mg Tablet 20 MG PO (08:40)
[2021-10-22 08:48] LABS: Glucose Point of Care 119 mg/dL (70-110)
[2021-10-22 08:48] LABS: Glucose Point of Care 84 mg/dL (70-110)
[2021-10-22 08:48] LABS: Glucose Point of Care 93 mg/dL (70-110)
[2021-10-22 08:48] LABS: Glucose Point of Care 92 mg/dL (70-110)
[2021-10-22 08:48] LABS: Glucose Point of Care 95 mg/dL (70-110)
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
[2021-10-22 12:06] LABS: C-Peptide 4.28 ng/mL (0.80-3.85)
[2021-10-22 14:00] VITALS: BP 119/76; PULSE 64; RESP 18; TEMP 36.9; O2SAT 100
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
--- NOTE | 2021-10-22 16:52 | PC.SOCIAL ---
Patient did not attend group.
[2021-10-22] MEDS: hyDROXYzine 25 mg Capsule 50 MG PO (17:34)
[2021-10-22] MEDS: diphenhydrAMINE 25 mg Capsule PO (17:47)
[2021-10-22 20:19] VITALS: BP 129/75; PULSE 67; RESP 18; O2SAT 100
[2021-10-22] MEDS: buPROPion XL (24 HR) 150 mg Tablet PO (20:21)
[2021-10-22] MEDS: escitalopram 10 mg Tablet 40 MG PO (20:21)
[2021-10-22] MEDS: trazodone 50 mg Tablet PO (21:48)
[2021-10-22] MEDS: efferdent effervescent 1 EACH DENTAL (22:15)
--- NOTE | 2021-10-23 00:51 | PC.NURSE ---
2148 trazodone given for sleep. It was effective.
[2021-10-23 06:00] VITALS: BP 97/62; PULSE 76; RESP 18; O2SAT 98
[2021-10-23] MEDS: HYDROcodone-acetaminophen 5-325 mg Tablet 1 TAB PO (06:02)
[2021-10-23] MEDS: hyDROXYzine 25 mg Capsule 50 MG PO (07:12)
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
[2021-10-23] MEDS: potassium chloride ER 20 mEq Tablet PO (08:14)
[2021-10-23] MEDS: pregabalin 150 mg Capsule PO (08:14)
[2021-10-23] MEDS: cyanocobalamin 1,000 mcg Tablet 500 MCG PO (08:14)
[2021-10-23] MEDS: topiramate 100 mg Tablet 200 MG PO (08:14)
[2021-10-23] MEDS: rivaroxaban 10 mg Tablet 20 MG PO (09:14)
[2021-10-23 10:38] VITALS: BP 97/62; PULSE 76; RESP 18; O2SAT 98
--- NOTE | 2021-10-23 14:54 | P.PN_ITS ---
Subjective Subjective: She says she is doing well today. She is discharged by psychiatry. Vitals/I&O/Wt Last Vital Signs Temp 98.4 F 10/22/21 14:00 Pulse 76 10/23/21 10:38 Resp 18 10/23/21 10:38 BP 97/62 10/23/21 10:38 Pulse Ox 98 10/23/21 10:38 Physical Exam Narrative: She says she is doing well, denies any complaints, and is happy about returning home. Const: COMMON NORMALS: alert GENERAL APPEARANCE: cooperative NUTRITIONAL APPEARANCE: obese ORIENTATION/CONSCIOUSNESS: Yes awake OTHER: Ambulating in the gant HENMT: COMMON NORMALS: normocephalic, EAC's normal, Normal external nose present and moist oral mucous membranes HEAD & SCALP: normocephalic NOSE: Normal external nose present EXTERNAL AUDITORY CANAL: EAC's normal Neck/C-Spine: COMMON NORMALS: no meningeal signs Chest: CHEST: Yes Symmetrical chest wall rise Neuro: COMMON NORMALS: moves all extremities SENSORIUM/ORIENTATION: Yes alert MENINGEAL SIGNS: Yes no meningeal signs Psych: COMMON NORMALS: mental status grossly normal Skin: COMMON NORMALS: no wounds RASHES: no rashes Data : 10/20/21 16:33 10/20/21 16:33 A&P Assessment and plan (1) Hypoglycemia: Her glucose has remained good. Discussed with her referral for additional assessment with MRI to assess for a local recurrence. She then may benefit from repeat 72-hour fast, or if hypoglycemia recurs again and is documented, possibly referral for somatostatin receptor PET/CT, which may have to be done at a tertiary facility to further assess for ectopic insulinoma or metastatic disease. She has an appointment with endocrinology in December. Insulin level 12. C-peptide not low at 4.28. Still pending hypoglycemic medication panel. CT with contrast on 10/20 without hypervascular lesions identified within pancreas. In case studies suggestive of possible insulinoma consider three- phase CT or possibly MRI given prior pancreatic surgery to look for local recurrence. Possibly Octreoscan for ectopic or malignant metastatic disease. Continue to monitor glucose. She is tolerating oral intake. Continue regular diet. Status: Acute Plan Depression, SI Continue management per psychiatry. Normal TSH, free T4, folic acid, magnesium. Low B12, add supplementation. Nonreactive HIV, hepatitis (except A which is pending due to having to be send out). RPR neg. Unremarkable ferritin, iron panel. Pending 25 hydroxy vitamin D level, 1, 25 hydroxy vitamin D level Factor V Leiden. Xarelto 20 Mill grams by mouth daily History of pancreatic head tumor, status post surgical excision Obesity. The patient becomes regarding lifestyle modification Smoker. The patient becomes regarding smoking cessation Chronic pain versus narcotic seeking behavior. She is referred for follow-up with pain clinic due to reported chronic pain despite spinal stimulator reported leading also to depression, SI. Attestations Medical Necessity Statement*: She is discharged home today with outpatient follow-up. Coding Level of Care Code Acute Digester Capper for g Fwd Exam Detailed Diagnoses Hypoglycemia E16.2
[2021-10-24 14:53] LABS: Vit D 1,25 (Oh)2, Total 43 pg/mL (18-72); Vit D2 1,25 (Oh)2 <8 pg/mL; Vit D3 1,25 (Oh)2 43 pg/mL
[2021-10-25 08:35] LABS: Glucose Point of Care 91 mg/dL (70-110)
[2021-10-25 08:35] LABS: Glucose Point of Care 119 mg/dL (70-110)
[2021-10-25 08:35] LABS: Glucose Point of Care 126 mg/dL (70-110)
== END 2021-10-23 10:47 | disposition home or self-care (01) | DRG 880 ==
LOC: ER 18:26 → NP 10-21 00:25
PROVIDERS: Internal Medicine; Admitting Provider Psychiatry & Neurology Psychiatry; Emergency Provider Emergency Medicine; Visit Provider Psychiatry & Neurology Psychiatry
DX: F41.8 Other specified anxiety disorders (principal); D68.51 Activated protein C resistance; E16.2 Hypoglycemia, unspecified; R56.9 Unspecified convulsions; Z85.07 Personal history of malignant neoplasm of pancreas; Z90.411 Acquired partial absence of pancreas; G89.29 Other chronic pain; E66.9 Obesity, unspecified; Z68.37 Body mass index [BMI] 37.0-37.9, adult; F43.10 Post-traumatic stress disorder, unspecified; Z62.810 Personal history of physical and sexual abuse in childhood; Z79.01 Long term (current) use of anticoagulants
CPT/HCPCS: 36415; 36416; 74177; 80053; 80074; 80306; 82306; 82607; 82652; 82728; 82746; 82962; 83036; 83525; 83540; 83550; 83690; 83735; 84439; 84443; 84681; 84703; 85025; 86592; 87806; 96365; 96366; 96375; 97165; 99285; J1170; J2270; J2354; J7030; Q9967

== ENCOUNTER 2021-11-11 17:00 | Emergency (ER) | payer MEDICAID, SELFPAY ==
--- NOTE | 2021-11-11 17:08 | XRR_ITS ---
PROCEDURE INFORMATION: Exam: XR Right Shoulder Exam date and time: 11/11/2021 5:22 PM Age: 46 years old Clinical indication: Pain; Shoulder; Right; Additional info: Injury TECHNIQUE: Imaging protocol: XR Right shoulder. Views: 2 or more views. COMPARISON: CR XR chest 1V portable [id number] 08/06/2021 10:18 PM FINDINGS: Bones/joints: Normal. Soft tissues: Normal. XR/XR shoulder RT min 2V* [id number] IMPRESSION: No acute findings.
[2021-11-11 17:14] VITALS: BP 143/96; PULSE 76; RESP 16; TEMP 36.8; O2SAT 97; BMI 32.3
--- NOTE | 2021-11-11 17:19 | ECG_ITS ---
[facility] Test Date: 2021-11-11 Pat Name: Amber Salcedo Department: Room: Gender: Female Inclinometer Tester: : 1975 Requested By: Josefina Don Order Number: [id number] Dick MD: Faiza Beck M.D. Measurements Intervals [place] Rate: 68 P: 87 MN: 361 QRS: 7 QRSD: 158 T: 26 QT: 409 QTc: 438 Interpretive Statements Sinus rhythm with a rate of 87 bpm. Heavy electrical artifact ELECTRONIC VENTRICULAR PACEMAKER Defective EKG, need to repeat No previous ECG available for comparison Electronically Signed On 11-12-2021 20:12:47 CDT by Faiza Beck M.D. [email or web address]
--- NOTE | 2021-11-11 17:20 | W.ED.SYNCOPE ---
HPI - Syncope General: Chief Complaint: Seizure Stated Complaint: R SHOULDER INJURY Time Seen by Provider: 11/11/21 17:03 Source: patient Mode of arrival: ambulatory Limitations: no limitations History of Present Illness: 46-year-old female who states that she has a pancreatic tumor that caused her to have episodes of hypoglycemia and she had multiple episodes of syncope from it. States she had a syncopal event today roughly 3 hours ago check she fell and landed on her right shoulder states that she is felt fine besides shoulder pain since then. She states she does have pain over the lateral portion of her shoulder but is able to move it fully denies any neck pain denies hitting her head. Associated symptoms: Deny abdominal pain, chest pain, fever(s), headache(s) or nausea Review of Systems Const: Denies: fever(s), chills, body aches or change in appetite Eyes: Denies: blurry vision or eye discomfort ENMT: Denies: throat pain or dental pain Card: Denies: chest pain Resp: Denies: dyspnea GI: Denies: abdominal pain, nausea, vomiting or diarrhea : Denies: dysuria Musc: Reports: extremity pain; Denies: neck pain or back pain Skin/Breast: Denies: rash Neuro: Denies: headache(s) Psych: Denies: depression [place]/Lymph: Denies: easy bruising All/Imm: Denies: urticaria PFSH ED PFSH: Medical History (Updated 11/11/21 @ 18:47 by Josefina Don MD) History of depression History of factor V Leiden mutation History of hypoglycemia Pancreatic neoplasm Surgical History History of cholecystectomy Family History Mother CAD (coronary artery disease) Father Diabetes Social History Smoking and tobacco status: never smoked Alcohol intake: never Physical Exam Const: COMMON NORMALS: no acute distress, patient oriented x3 and healthy appearing HENMT: COMMON NORMALS: normocephalic and atraumatic HEAD & SCALP: normocephalic and atraumatic Eye: COMMON NORMALS: Equal, round and reactive pupils present and EOMs intact bilaterally PUPIL: Yes Equal, round and reactive pupils present Neck/C-Spine: COMMON NORMALS: full ROM and supple Chest: COMMONS NORMALS: normal inspection of the chest and normal palpation of entire chest wall Resp: COMMON NORMALS: normal respiratory effort, No retractions, No use of accessory muscles and clear to auscultation bilaterally AUSCULTATION: clear to auscultation bilaterally Cardio: COMMON NORMALS: regular rate, regular rhythm and No murmurs present (Cardio) RATE: regular rate RHYTHM: regular rhythm GI: COMMON NORMALS: Normal to inspection, nondistended, normoactive bowel sounds present, Soft to palpation, non-tender and no masses PALPATION: Yes Soft to palpation Extremity: COMMON NORMALS: normal to inspection and full ROM NARRATIVE EXTREMITY EXAM: Tenderness over right shoulder full range of motion with no obvious deformity Neuro: COMMON NORMALS: patient oriented x3, moves all extremities and no focal motor deficits Psych: COMMON NORMALS: mental status grossly normal, Normal thought process present and cooperative THOUGHT PROCESS: Normal thought process present Skin: COMMON NORMALS: no rashes or lesions noted and no wounds GENERAL SKIN EXAM: no rashes or lesions noted Course Vital Signs: Vital signs: Vital Signs Temperature 98.3 F 11/11/21 17:14 Pulse Rate 64 11/11/21 18:14 Respiratory Rate 14 11/11/21 18:14 Blood Pressure 149/94 11/11/21 18:14 Pulse Oximetry 98 11/11/21 18:14 MDM - Syncope Medical Decision Making Patient presents with syncope electrolytes here are normal x-ray of her chest and CT head are normal as well. She is stable for discharge she is to follow-up with PCP and return if worsening she understands agrees to plan. We will prescribe her Naprosyn for her shoulder pain Lab Data : 11/11/21 18:06 Radiology Impressions Shoulder X-Ray 11/11/21 17:08 IMPRESSION: No acute findings. Head CT 11/11/21 17:42 IMPRESSION: No acute intracranial abnormality. Laboratory Results Sodium 142 mmol/L (136-145) 11/11/21 18:06 Potassium 3.6 mmol/L (3.5-5.1) 11/11/21 18:06 Chloride 106 mmol/L (98-107) 11/11/21 18:06 Carbon Dioxide 22 mmol/L (22-29) 11/11/21 18:06 Anion Gap 17.6 (5-19) 11/11/21 18:06 BUN 7 mg/dL (6-20) 11/11/21 18:06 Creatinine 0.7 mg/dL (0.5-0.9) 11/11/21 18:06 GFR Calculation 90.9 mL/min (90-130) 11/11/21 18:06 Glucose 91 mg/dL (65-115) 11/11/21 18:06 POC Glucose 103 mg/dL (70-110) 11/11/21 17:42 Calculated Osmolality 292 mOsm/kg (285-295) 11/11/21 18:06 Calcium 9.3 mg/dL (8.5-10.5) 11/11/21 18:06 EKG Data EKG 1: I personally reviewed and interpreted this EKG as follows: EKG interpretation date: 11/11/21 EKG interpretation time: 17:50 Interpretation: nsr hr [address] or t wave abnormalities qrs 158 qtc 427 Discharge Plan Discharge Patient Disposition: Home Clinical Impression: Syncope Qualifiers: Syncope type: unspecified Qualified Code(s): R55 - Syncope and collapse Contusion of right shoulder Qualifiers: Encounter type: initial encounter Qualified Code(s): S40.011A - Contusion of right shoulder, initial encounter Condition: Stable Prescriptions: New Naprosyn 500 mg tablet 500 mg PO BID PRN (Reason: pain) Qty: 20 0RF No Action Topamax 200 mg Tablet 200 mg PO BID 0RF Wellbutrin XL 150 mg Tablet Extended Release 24 Hr 150 mg PO BEDTIME 0RF Lyrica 150 mg Capsule 150 mg PO BID 0RF Xarelto 20 mg Tablet 20 mg PO DAILY 0RF Rx Instructions: must administer with evening meal potassium chloride 20 mEq Tablet Extended Release 20 meq PO QAM 0RF escitalopram oxalate 20 mg tablet 40 mg PO BEDTIME 30 Days Qty: 60 1RF hydrocodone-acetaminophen 5-325 mg Tablet 1 tab PO Q6H PRN (Reason: prn severe pain) Qty: 15 0RF fentanyl 25 mcg/hr Patch 72 Hour 1 patch transdermal Q72H Qty: 5 0RF Discharge Orders: Discharge ED (Routine); Ordered 11/11/21 Ordered By: Josefina Don Discharge Diet: Advance as tolerated Discharge Activity: Resume usual activity Patient Instructions: Syncope (ED), Shoulder Pain (ED) Coding Level of Care Code ED Flight Attendant/Inflight Supervisor for Chg Fwd Exam Comprehensive
--- NOTE | 2021-11-11 17:42 | CTR_ITS ---
PROCEDURE INFORMATION: Exam: CT Head Without Contrast Exam date and time: 11/11/2021 5:58 PM Age: 46 years old Clinical indication: Injury or trauma; Other: Seizure and headache; Blunt trauma (contusions or hematomas); Injury date: ; Injury details: Sz/ fall, patient refused to remove earrings for exam TECHNIQUE: Imaging protocol: Computed tomography of the head without contrast. Radiation optimization: All CT scans at this facility use at least one of these dose optimization techniques: automated exposure control; mA and/or kV adjustment per patient size (includes targeted exams where dose is matched to clinical indication); or iterative reconstruction. COMPARISON: No relevant prior studies available. RADIATION DOSE METRICS: Total DLP (mGy-cm): 861.16 FINDINGS: Brain: Normal. No hemorrhage. Unremarkable white matter. No mass effect. Cerebral ventricles: No ventriculomegaly. Paranasal sinuses: Visualized sinuses are unremarkable. No fluid levels. Mastoid air cells: Visualized mastoid air cells are well aerated. Bones/joints: Unremarkable. No acute fracture. Soft tissues: Unremarkable. CT/CT head wo con* [id number] IMPRESSION: No acute intracranial abnormality.
[2021-11-11 17:54] LABS: Glucose Point of Care 103 mg/dL (70-110)
[2021-11-11] MEDS: HYDROcodone-acetaminophen 5-325 mg Tablet 1 TAB PO (18:11)
[2021-11-11 18:14] VITALS: BP 149/94; PULSE 64; RESP 14; O2SAT 98
[2021-11-11 18:38] LABS: Anion Gap 17.6 (5-19); Blood Urea Nitrogen 7 mg/dL (6-20); Calcium 9.3 mg/dL (8.5-10.5); Carbon Dioxide 22 mmol/L (22-29); Chloride 106 mmol/L (98-107); Glomerular Filtration Rate 90.9 mL/min (90-130); Glucose 91 mg/dL (65-115); Osmolality Calculated 292 mOsm/kg (285-295); Potassium 3.6 mmol/L (3.5-5.1); Sodium 142 mmol/L (136-145)
[2021-11-11 18:59] VITALS: BP 150/97; PULSE 69; RESP 17; O2SAT 99
== END 2021-11-11 19:00 | disposition home or self-care (01) ==
PROVIDERS: Emergency Provider Emergency Medicine
DX: S40.011A Contusion of right shoulder, initial encounter (principal); W19.XXXA Unspecified fall, initial encounter; R55 Syncope and collapse; D49.0 Neoplasm of unspecified behavior of digestive system; E16.2 Hypoglycemia, unspecified
CPT/HCPCS: 36416; 70450; 73030; 80048; 82962; 93005; 99284

== ENCOUNTER 2021-11-28 22:30 | Emergency (ER) | payer MEDICAID, SELFPAY ==
[2021-11-28 22:32] VITALS: BMI 33.9
--- NOTE | 2021-11-28 22:33 | ED_ITS ---
HPI - General Adult General: Chief complaint: Nausea/Vomiting/Diarrhea Stated complaint: low blood sugar Time Seen by Provider: 11/28/21 22:32 History of Present Illness: Ms. Salcedo is a 46-year-old lady with complex past medical history including history of pancreatic tumor status postresection with suspected recurrence resulting in persistent episodes of hypoglycemia that occurred suddenly and are associated with hypoglycemic seizures. Patient reports that increase seizures and difficulty keeping her blood sugar up over the past 3 to 4 days. She describes baseline abdominal discomfort however due to the increased frequency of seizures has generalized muscle aches and pains. Overall intensity symptoms is moderate to severe. Course has persisted. No other specific changes in health, exacerbating, or alleviating factors identified. Location: abdomen Severity: moderate Quality: aching and other Associated symptoms: Reports seizures Review of Systems General: Reports: 10 or more systems reviewed and unremarkable except in HPI and below PFSH ED PFSH: Medical History History of depression History of factor V Leiden mutation History of hypoglycemia Pancreatic neoplasm Surgical History History of cholecystectomy Family History Mother CAD (coronary artery disease) Father Diabetes Social History Smoking and tobacco status: never smoked Alcohol intake: never Physical Exam Const: COMMON NORMALS: alert GENERAL APPEARANCE: cooperative and well developed HENMT: COMMON NORMALS: normocephalic and atraumatic HEAD & SCALP: normocephalic and atraumatic Eye: COMMON NORMALS: conjunctivae normal CONJUNCTIVA: Yes conjunctivae normal SCLERA: sclerae normal Neck/C-Spine: COMMON NORMALS: supple GENERAL: Yes trachea midline Resp: COMMON NORMALS: normal respiratory effort EFFORT & INSPECTION: Yes able to speak in complete sentences Cardio: COMMON NORMALS: regular rate and regular rhythm RATE: regular rate RHYTHM: regular rhythm GI: COMMON NORMALS: Soft to palpation PALPATION: Yes Soft to palpation and No Tenderness to palpation present (GI) PERCUSSION: normal to percussion Extremity: GENERAL: Yes normal exam except as noted and No edema Neuro: COMMON NORMALS: moves all extremities SENSORIUM/ORIENTATION: Yes al ert and No Orientation impaired Psych: COMMON NORMALS: mental status grossly normal and Normal thought process present THOUGHT PROCESS: Normal thought process present Course ED course: - Patient was seen and evaluated by me at bedside - Patient placed on cardiac monitors, IV access obtained - Initial evaluation notable for exam as above - Labs personally interpreted by me -Analgesia given - Labs notable for no significant hematologic or metabolic abnormality to explain symptoms. Glucose remains adequate. - Upon serial reexamination after treatment the patient was similar without recurrence of episodes. - Based on patient history, evaluation, and testing as interpreted the most likely cause of the patient's condition is hyperglycemia likely secondary to underlying pancreatic cancer or other abnormality. - The results of ED evaluation were discussed with the patient including prescriptions and/or symptomatic cares (if applicable) including appropriate and responsible use, followup plan, and return precautions. The patient verbalized understanding and felt safe for discharge. - Patient discharged in satisfactory condition. Note: Click bubbles or prepopulated prasad in note writing are used for assistance with data collection and billing and are inherently more limited than narrative and other text portions of this note. Please use narrative for additional clinical history and defer to narrative/free test for any case of contradictory information. If information appears in only free text or click bubble it should be considered present or absent as reported. Please contact note advertising copy writer for clarifications of clinical information or contradictory information. MDM is a brief summary, contradictory or erroneous seeming information should be clarified and full note should be reviewed. Vital Signs: Vital signs: Vital Signs Temperature 98.0 F 11/28/21 22:36 Pulse Rate 62 11/29/21 02:41 Respiratory Rate 17 11/29/21 02:41 Blood Pressure 175/94 11/28/21 22:36 Pulse Oximetry 95 11/29/21 02:41 MDM - General Adult Medical Decision Making 46-year-old lady with history of pancreatic cancer with suspected recurrence presenting to the emergency department due to hyperglycemia. No recurrent episodes of seizures or hypoglycemia identified during ED evaluation. Challenging situation, ultimately patient needs outpatient follow-up with specialist which she has planned. Satisfactory for outpatient management with strict return precautions. Medical Records I reviewed the patient's medical records. Lab Data I reviewed the patient's lab results. : 11/28/21 23:20 11/28/21 23:20 Laboratory Results WBC 9.1 10^3/uL (4.0-10.0) 11/28/21 23:20 RBC 4.12 10^6/uL (4.1-5.3) 11/28/21 23:20 Hgb 12.4 g/dL (11.5-15.3) 11/28/21 23:20 Hct 37.8 % (37.0-47.0) 11/28/21 23:20 MCV 91.7 fl (81-99) 11/28/21 23: MCH 30.1 pg (28.0-34.0) 11/28/21 23:20 MCHC 32.8 g/dL (30.0-36.0) 11/28/21 23:20 RDW 14.9 % (12.1-15.1) 11/28/21 23: Plt Count 176 10^3/cmm (130-400) 11/28/21 23:20 MPV 12.0 fL (7.4-10.4) H 11/28/21 23:20 Neut % (Auto) 65.7 % 11/28/21 23:20 Lymph % (Auto) 24.6 % 11/28/21 23:20 [place] % (Auto) 7.9 % 11/28/21 23:20 Eos % (Auto) 1.0 % 11/28/21 23:20 Baso % (Auto) 0.4 % 11/28/21 23:20 Neut # (Auto) 6.00 10^3/uL (1.8-7.7) 11/28/21 23:20 Lymph # (Auto) 2.3 10^3/uL (0.8-4.8) 11/28/21 23:20 [place] # (Auto) 0.7 10^3/uL (0.2-0.9) 11/28/21 23:20 Eos # (Auto) 0.1 10^3/uL (0.0-0.8) 11/28/21 23:20 Baso # (Auto) 0.0 10^3/uL (0.0-0.1) 11/28/21 23:20 Nucleated RBC % (auto) 0 % 11/28/21 23:20 Nucleated RBCs # 0.0 /100WBC 11/28/21 23:20 Sodium 140 mmol/L (136-145) 11/28/21 23:20 Potassium 3.3 mmol/L (3.5-5.1) L 11/28/21 23:20 Chloride 106 mmol/L (98-107) 11/28/21 23:20 Carbon Dioxide 23 mmol/L (22-29) 11/28/21 23:20 Anion Gap 14.3 (5-19) 11/28/21 23:20 BUN 6 mg/dL (6-20) 11/28/21 23:20 Creatinine 0.7 mg/dL (0.5-0.9) 11/28/21 23:20 GFR Calculation 90.9 mL/min (90-130) 11/28/21 23:20 Glucose 91 mg/dL (65-115) 11/28/21 23:20 POC Glucose 117 mg/dL (70-110) H 11/29/21 01:39 Calculated Osmolality 287 mOsm/kg (285-295) 11/28/21 23:20 Calcium 8.8 mg/dL (8.5-10.5) 11/28/21 23:20 Total Bilirubin 0.4 mg/dL (0.15-1.2) 11/28/21 23:20 AST 13 U/L (0-32) 11/28/21 23:20 ALT 13 U/L (0-33) 11/28/21 23:20 Alkaline Phosphatase 114 IU/L (35-105) H 11/28/21 23:20 Creatine Kinase 52 U/L (26-192) 11/28/21 23:20 Total Protein 6.7 g/dL (6.6-8.7) 11/28/21 23:20 Albumin 3.7 g/dL (3.5-5.2) 11/28/21 23:20 Globulin 3.0 g/dL (1.3-4.6) 11/28/21 23:20 Lipase 24 U/L (13-60) 11/28/21 23:20 Discharge Plan Discharge Patient Disposition: Home Clinical Impression: Hypoglycemia, Generalized body aches Condition: Stable Prescriptions: New hydrocodone-acetaminophen 5-325 mg tablet 1 tab PO Q6H PRN (Reason: pain) Qty: 8 0RF No Action Naprosyn 500 mg tablet 500 mg PO BID PRN (Reason: pain) Qty: 20 0RF Topamax 200 mg Tablet 200 mg PO BID 0RF Wellbutrin XL 150 mg Tablet Extended Release 24 Hr 150 mg PO BEDTIME 0RF Lyrica 150 mg Capsule 150 mg PO BID 0RF Xarelto 20 mg Tablet 20 mg PO DAILY 0RF Rx Instructions: must administer with evening meal potassium chloride 20 mEq Tablet Extended Release 20 meq PO QAM 0RF escitalopram oxalate 20 mg tablet 40 mg PO BEDTIME 30 Days Qty: 60 1RF hydrocodone-acetaminophen 5-325 mg Tablet 1 tab PO Q6H PRN (Reason: prn severe pain) Qty: 15 0RF fentanyl 25 mcg/hr Patch 72 Hour 1 patch transdermal Q72H Qty: 5 0RF Discharge Orders: Discharge ED (Routine); Ordered 11/29/21 Ordered By: Vishal Linda Discharge Diet: Usual diet Discharge Activity: Limit activity as instructed Patient Instructions: Hypoglycemia, Recurrent Seizures in Adults (ED), Opioid Safety Activity Restrictions/Additional Instructions: Thank you for visiting the emergency department. You were seen and evaluated for low blood sugar and seizures. Exact cause of the symptoms is unclear though likely related to your underlying pancreatic abnormality. Please continue follow-up in the outpatient setting. Return to the emergency department for anything that you are concerned about a feel needs emergency department evaluation. Coding Level of Care Code ED Enhanced Environmental Operator for Dejon Fwbrit Exam Comprehensive
[2021-11-28 22:36] VITALS: BP 175/94; PULSE 61; RESP 16; TEMP 36.7; O2SAT 99
[2021-11-28 23:34] LABS: Basophils % 0.4 %; Eosinophils # 0.1 10^3/uL (0.0-0.8); Hematocrit 37.8 % (37.0-47.0); Hemoglobin 12.4 g/dL (11.5-15.3); Lymphocytes # 2.3 10^3/uL (0.8-4.8); Lymphocytes % 24.6 %; Mean Corpuscular HGB Conc 32.8 g/dL (30.0-36.0); Mean Corpuscular Hemoglobin 30.1 pg (28.0-34.0); Mean Corpuscular Volume 91.7 fl (81-99); Monocytes # 0.7 10^3/uL (0.2-0.9); Monocytes % 7.9 %; Neutrophils % 65.7 %; Nucleated Red Blood Cells % 0 %; Platelet Count 176 10^3/cmm (130-400); Red Blood Count 4.12 10^6/uL (4.1-5.3); Red Cell Distribution Width 14.9 % (12.1-15.1); White Blood Count 9.1 10^3/uL (4.0-10.0)
[2021-11-28 23:35] VITALS: RESP 16; O2SAT 98
[2021-11-28] MEDS: morphine 4 mg/mL SDV 1 mL IVP (23:35)
[2021-11-28 23:51] LABS: Alanine Aminotransferase 13 U/L (0-33); Albumin Level 3.7 g/dL (3.5-5.2); Alkaline Phosphatase 114 IU/L (35-105); Anion Gap 14.3 (5-19); Aspartate Amino Transferase 13 U/L (0-32); Blood Urea Nitrogen 6 mg/dL (6-20); Calcium 8.8 mg/dL (8.5-10.5); Carbon Dioxide 23 mmol/L (22-29); Chloride 106 mmol/L (98-107); Creatine Phosphokinase 52 U/L (26-192); Glomerular Filtration Rate 90.9 mL/min (90-130); Glucose 91 mg/dL (65-115); Osmolality Calculated 287 mOsm/kg (285-295); Potassium 3.3 mmol/L (3.5-5.1); Sodium 140 mmol/L (136-145); Total Bilirubin 0.4 mg/dL (0.15-1.2); Total Protein 6.7 g/dL (6.6-8.7)
[2021-11-29 00:15] LABS: Lipase 24 U/L (13-60)
[2021-11-29 00:46] LABS: Glucose Point of Care 89 mg/dL (70-110)
[2021-11-29 01:54] LABS: Glucose Point of Care 117 mg/dL (70-110)
[2021-11-29 02:32] VITALS: RESP 16; O2SAT 100
[2021-11-29] MEDS: morphine 4 mg/mL SDV 1 mL IVP (02:32)
[2021-11-29 02:41] VITALS: PULSE 62; RESP 17; O2SAT 95
== END 2021-11-29 02:49 | disposition home or self-care (01) ==
PROVIDERS: Emergency Provider Emergency Medicine
DX: E16.2 Hypoglycemia, unspecified (principal); Z85.07 Personal history of malignant neoplasm of pancreas; M79.10 Myalgia, unspecified site
CPT/HCPCS: 36416; 80053; 82550; 82962; 83690; 85025; 96374; 96376; 99284; J2270

== ENCOUNTER 2022-02-24 02:48 | Emergency (ER) | payer MEDICAID, SELFPAY ==
[2022-02-24 02:57] VITALS: BP 153/95; PULSE 96; RESP 18; TEMP 36.7; O2SAT 98; BMI 35.7
[2022-02-24 03:03] LABS: Glucose Point of Care 115 mg/dL (70-110)
--- NOTE | 2022-02-24 03:09 | ED_ITS ---
HPI - General Adult General: Chief complaint: General Medical Stated complaint: low blood surgar Time Seen by Provider: 02/24/22 03:02 Source: patient Mode of arrival: ambulatory Limitations: no limitations History of Present Illness: Appropriate female states she has a history of hypoglycemia episodes. States that tonight her blood sugar was 50 she had to come checked out in the ER she had drank juice on the way here her blood sugar now is 115 states she does have vomiting chronically denies any vomiting today denies any worsening improving factors. She is well-appearing here with no altered no status. Associated symptoms: Deny chest pain, dyspnea, headache(s), nausea, rash or vomiting Review of Systems Const: Denies: fever(s), chills, body aches or change in appetite Eyes: Denies: blurry vision or eye discomfort ENMT: Denies: throat pain or dental pain Card: Denies: chest pain Resp: Denies: dyspnea GI: Denies: abdominal pain, nausea, vomiting or diarrhea : Denies: dysuria Musc: Denies: neck pain or back pain Skin/Breast: Denies: rash Neuro: Denies: headache(s) Psych: Denies: depression [place]/Lymph: Denies: easy bruising All/Imm: Denies: urticaria PFSH ED PFSH: Medical History History of depression History of factor V Leiden mutation History of hypoglycemia Pancreatic neoplasm Surgical History History of cholecystectomy Family History Mother CAD (coronary artery disease) Father Diabetes Social History Smoking and tobacco status: never smoked Alcohol intake: never Physical Exam Const: COMMON NORMALS: no acute distress, patient oriented x3 and healthy appearing HENMT: COMMON NORMALS: normocephalic and atraumatic HEAD & SCALP: normocephalic and atraumatic Eye: COMMON NORMALS: Equal, round and reactive pupils present and EOMs intact bilaterally PUPIL: Yes Equal, round and reactive pupils present Neck/C-Spine: COMMON NORMALS: full ROM and supple Chest: COMMONS NORMALS: normal inspection of the chest Resp: COMMON NORMALS: normal respiratory effort Cardio: COMMON NORMALS: regular rate, regular rhythm and No murmurs present (Cardio) RATE: regular rate RHYTHM: regular rhythm GI: INSPECTION: Yes normal to inspection Extremity: COMMON NORMALS: normal to inspection and full ROM Neuro: COMMON NORMALS: patient oriented x3, moves all extremities and no focal motor deficits Psych: COMMON NORMALS: mental status grossly normal, Normal thought process present and cooperative THOUGHT PROCESS: Normal thought process present Skin: COMMON NORMALS: no rashes or lesions noted and no wounds GENERAL SKIN EXAM: no rashes or lesions noted Course Vital Signs: Vital signs: Vital Signs Temperature 98.0 F 02/24/22 02:57 Pulse Rate 96 02/24/22 02:57 Respiratory Rate 18 02/24/22 02:57 Blood Pressure 153/95 02/24/22 02:57 Pulse Oximetry 98 02/24/22 02:57 Oxygen Delivery Me thod 02/24/22 02:57 MDM - General Adult Medical Decision Making Patient presents with hypoglycemia from home since resolved she states she drank orange juice her blood sugar here is 115 she is well-appearing here stable for discharge she is to follow-up with PCP and return if worsening. Lab Data Laboratory Results POC Glucose 115 mg/dL (70-110) H 02/24/22 02:58 Discharge Plan Discharge Patient Disposition: Home Clinical Impression: Hypoglycemia Condition: Stable Prescriptions: New ondansetron 4 mg tablet,disintegrating 4 mg PO Q6H PRN (Reason: nausea and vomiting) Qty: 14 0RF No Action Naprosyn 500 mg tablet 500 mg PO BID PRN (Reason: pain) Qty: 20 0RF hydrocodone-acetaminophen 5-325 mg tablet 1 tab PO Q6H PRN (Reason: pain) Qty: 8 0RF Topamax 200 mg Tablet 200 mg PO BID Wellbutrin XL 150 mg Tablet Extended Release 24 Hr 150 mg PO BEDTIME Lyrica 150 mg Capsule 150 mg PO BID Xarelto 20 mg Tablet 20 mg PO DAILY Rx Instructions: must administer with evening meal potassium chloride 20 mEq Tablet Extended Release 20 meq PO QAM escitalopram oxalate 20 mg tablet 40 mg PO BEDTIME 30 Days Qty: 60 1RF hydrocodone-acetaminophen 5-325 mg Tablet 1 tab PO Q6H PRN (Reason: prn severe pain) Qty: 15 0RF fentanyl 25 mcg/hr Patch 72 Hour 1 patch transdermal Q72H Qty: 5 0RF Discharge Orders: Discharge ED (Routine); Ordered 02/24/22 Ordered By: Josefina Don Discharge Diet: Advance as tolerated Discharge Activity: Resume usual activity Patient Instructions: Hypoglycemia Coding Level of Care Code ED [employer] Systems Specialist for Dejon Henson
[2022-02-24] MEDS: ondansetron 4 MG Tablet PO (03:15)
[2022-02-24] MEDS: HYDROcodone-acetaminophen 5-325 mg Tablet 1 TAB PO (03:24)
== END 2022-02-24 03:26 | disposition home or self-care (01) ==
PROVIDERS: Emergency Provider Emergency Medicine
DX: E11.649 Type 2 diabetes mellitus with hypoglycemia without coma (principal)
CPT/HCPCS: 36416; 82962; 99283; Q0162

== ENCOUNTER → 2022-07-13 14:11 | Outpatient (BNVA) | payer MEDICAID, SELFPAY | PROVIDERS: Visit Provider Family Medicine | DX: M79.672 Pain in left foot (principal); M25.572 Pain in left ankle and joints of left foot | CPT/HCPCS: 73610; 73630 ==

== ENCOUNTER 2023-04-07 18:09 | Emergency (ER) | payer MEDICAID, SELFPAY ==
[2023-04-07 18:17] VITALS: PULSE 96; RESP 17; O2SAT 100; BMI 41.5
[2023-04-07 18:28] LABS: Glucose Point of Care 131 mg/dL (70-110)
--- NOTE | 2023-04-07 18:40 | XRR_ITS ---
PROCEDURE INFORMATION: Exam: XR Right Knee Exam date and time: 04/07/2023 7:09 PM Age: 47 years old Clinical indication: Pain and injury or trauma; Other: RT knee pain post seizure/fall; Right TECHNIQUE: Imaging protocol: Radiologic exam of the right knee. Views: 3 views. COMPARISON: No relevant prior studies available. FINDINGS: Bones/joints: Osseous structures are intact. Negative for fracture. Joint spaces are preserved. Soft tissues: Normal. XR/XR knee RT 3V* [id number] IMPRESSION: No acute findings.
--- NOTE | 2023-04-07 18:40 | CTR_ITS ---
PROCEDURE INFORMATION: Exam: CT Head Without Contrast Exam date and time: 04/07/2023 6:55 PM Age: 47 years old Clinical indication: Injury or trauma; Fall; Other: Seizure, known HX of seizures; Additional info: Fall on doac TECHNIQUE: Imaging protocol: Computed tomography of the head without contrast. Radiation optimization: All CT scans at this facility use at least one of these dose optimization techniques: automated exposure control; mA and/or kV adjustment per patient size (includes targeted exams where dose is matched to clinical indication); or iterative reconstruction. REPORTING DATA: Count of CT and Cardiac NM exams in prior 12 months: This patient has received 0 known CTs and 0 known cardiac nuclear medicine studies in the 12 months prior to the current study. COMPARISON: CT head wo con* [id number] 11/11/2021 5:58 PM RADIATION DOSE METRICS: Total DLP (mGy-cm): 1051.08 FINDINGS: Brain: Normal. No hemorrhage. Unremarkable white matter. No mass effect. Cerebral ventricles: No ventriculomegaly. Paranasal sinuses: Mucosal thickening of the right ethmoid sinuses. Mastoid air cells: Visualized mastoid air cells are well aerated. Bones/joints: Unremarkable. No acute fracture. Soft tissues: Unremarkable. CT/CT head wo con* [id number] IMPRESSION: No acute intracranial abnormality.
--- NOTE | 2023-04-07 18:43 | W.ED.FALL ---
HPI - Fall General: Chief Complaint: Fall Stated Complaint: seizures, fall, head injury, R knee pain Time Seen by Provider: 04/07/23 18:22 Source: patient and family Mode of arrival: ambulatory History of Present Illness: This patient has a history of labile blood sugars which has been attributed to unknown causes but is been a recurrent issue for her. 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 Since that time she has had intermittent difficulty keeping her blood sugars elevated to a normal or supra normal level. Today she had episode of low blood sugar and apparently had a subsequent seizure and fell striking her head. She also struck her right knee when she fell. She complains of headache at this time. She has a history of factor V Leyden deficiency and therefore takes a DOAC to reduce her clotting risk. 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 Location of injury: head Location of injury - extremities: Right: knee Associated symptoms-after fall: Reports headache(s); Denies chest pain, neck pain or vertigo Review of Systems Const: Denies: fever(s) or chills Eyes: Denies: change in vision ENMT: Denies: throat pain, odynophagia, nasal discharge or nasal congestion Card: Denies: chest pain, palpitations, syncope or pre-syncope GI: Reports: nausea; Denies: vomiting or diarrhea : Denies: difficulty voiding, dysuria or urinary hesitancy Musc: Reports: extremity pain; Denies: neck pain or back pain Skin/Breast: Denies: rash, pruritus or erythema Neuro: Reports: headache(s) and seizure-like activity; Denies: numbness in extremities, weakness in extremities or vertigo Bradford/Lymph: Reports: easy bruising and easy bleeding PFS ED PFSH: Medical History History of depression History of factor V Leiden mutation History of hypoglycemia Pancreatic neoplasm Surgical History History of cholecystectomy Family History Mother CAD (coronary artery disease) Father Diabetes Social History Smoking and tobacco status: never smoked Alcohol intake: never Substance/Drug Use: never Physical Exam Narrative: EXAM NARRATIVE: She is alert and answers questions appropriately. She is photophobic in the darkened room. Const: COMMON NORMALS: patient oriented x3 and alert GENERAL APPEARANCE: cooperative NUTRITIONAL APPEARANCE: overweight ORIENTATION/CONSCIOUSNESS: Yes awake, Yes oriented to person and Yes oriented to place HENMT: COMMON NORMALS: normocephalic, atraumatic, Normal nasal mucous membranes and turbinates present, moist oral mucous membranes and oropharynx normal HEAD & SCALP: normocephalic and atraumatic FACE & SINUS: normal facial exam NOSE: Normal nasal mucous membranes and turbinates present Eye: COMMON NORMALS: Equal, round and reactive pupils present, EOMs intact bilaterally and conjunctivae normal CONJUNCTIVA: Yes conjunctivae normal PUPIL: Yes Equal, round and reactive pupils present Neck/C-Spine: COMMON NORMALS: full ROM CERVICAL SPINE: Yes cervical ROM normal, No Cervical spine tenderness, No step off deformity, No Paracervical muscle tenderness, No Paracervical spasm and No Trapezius muscle tenderness Chest: COMMONS NORMALS: normal inspection of the chest Resp: COMMON NORMALS: normal respiratory effort, No retractions, No use of accessory muscles and clear to auscultation bilaterally EFFORT & INSPECTION: Yes able to speak in complete sentences AUSCULTATION: clear to auscultation bilaterally Cardio: COMMON NORMALS: regular rate, regular rhythm, No murmurs present (Cardio) and Peripheral pulses 2+ throughout RATE: regular rate RHYTHM: regular rhythm PERIPHERAL PULSES: Peripheral pulses 2+ throughout GI: COMMON NORMALS: Normal to inspection, nondistended, normoactive bowel sounds present, Soft to palpation and non-tender PALPATION: Yes Soft to palpation : COMMON NORMALS: Yes no CVA tenderness BLADDER/KIDNEY EXAM: Yes no CVA tenderness Back/Pelvis: COMMON NORMALS: no CVA tenderness, thoracic and lumbar spine normal to inspection, no thoracic nor lumbar tenderness and thoraco-lumbar ROM normal Extremity: GENERAL: Yes normal exam except as noted RIGHT LOWER EXTREMITY: Yes knee joint (Tender) OTHER: Surgical absence of the right great toe Neuro: COMMON NORMALS: patient oriented x3, moves all extremities, no focal motor deficits and no sensory deficits noted SENSORIUM/ORIENTATION: Yes alert, Yes oriented to person and Yes oriented to place CRANIAL NERVES: Yes CN normal except as noted Psych: COMMON NORMALS: mental status grossly normal Skin: COMMON NORMALS: no rashes or lesions noted and turgor normal GENERAL SKIN EXAM: no rashes or lesions noted and turgor normal Course Reevaluation(s): Reevaluation #1: Patient remains clinically improved and stable. Her right knee was reexamined now that she is back from imaging. She has some tenderness around the inferior medial patellar region but has intact patellar function is able to extend fully extend the lower leg without difficulty. There is no laxity to varus or valgus stress. There is no effusion there is no erythema. Imaging studies revealed no evidence of obvious occult fracture. We discussed her head imaging studies and laboratories including her potassium levels. She would prefer to take her potassium at home. She apparently has been taking Lasix over the recently which may have contributed contributed to her low potassium tonight. She also takes spironolactone. We will go ahead and place a consult in for endocrinology follow-up due to her little labile blood sugars. At this point she does not have any evidence of an ongoing emergency medical condition is suitable to be discharged. They voiced understanding and were appreciative of care. Time: 20:53 Vital Signs: Vital signs: Vital Signs Pulse Rate 73 04/07/23 19:51 Respiratory Rate 18 04/07/23 19:51 Blood Pressure 125/69 04/07/23 19:51 Pulse Oximetry 98 04/07/23 19:51 Oxygen Delivery Me thod Room Air 04/07/23 19:51 MDM - Fall Medical Decision Making This patient made her way to the emergency department because of a alleged hypoglycemic related seizure fall with striking her head. She also injured her right knee. She apparently has a history of recurrent hypoglycemia for many years seemingly related to her Whipple procedure due to a pancreatic tumor. He is now followed by endocrinology locally. She has had similar occurrences in the past where her blood sugar falls and then she has had a seizure secondary to that condition. She apparently received 2 doses of glucagon at home and her blood sugars have stabilized. Her clinical examination revealed her to be alert in no acute distress. No focal findings on neurologic examination. She had no cervical spine tenderness. She did have tenderness to her right knee particularly in the inferior peripatellar region. Imaging was obtained and including head and right knee which were both reassuring without any evidence of fracture or intracranial hemorrhage etc. Laboratories were obtained which revealed only significant finding of borderline low potassium. It she was offered oral repletion but preferred to take her oral potassium at home. She did request and receive analgesics for her headache as well as her right knee pain. Consultation for endocrinology follow-up was placed. At the culmination of her emergency department treatment she was stable improved and stable to be managed as an outpatient without any evidence of an ongoing emergency medical condition and stable blood sugar in the emergency department. She voiced understanding and was appreciative of care. Medical Records I reviewed the patient's medical records. Lab Data I reviewed the patient's lab results. 04/07/23 18:50 04/07/23 18:[address] 04/07/23 18:40 IMPRESSION: No acute intracranial abnormality. Laboratory Results WBC 13.42 10^3/uL (3.29-11.43) H 04/07/23 18:50 RBC 4.25 10^6/uL (3.85-5.65) 04/07/23 18:50 Hgb 12.80 g/dL (11.27-16.99) 04/07/23 18:50 Hct 38.6 % (36-47) 04/07/23 18:50 MCV 90.8 fl (85-98) 04/07/23 18:50 MCH 30.1 pg (27-33) 04/07/23 18:50 MCHC 33.2 g/dL (30-55) 04/07/23 18:50 RDW 14.9 % (12.1-15.1) 04/07/23 18:50 Plt Count 252 10^3/cmm (157-399) 04/07/23 18:50 MPV 11.4 fL (7.4-10.4) H 04/07/23 18:50 Neut % (Auto) 72.5 % 04/07/23 18:50 Lymph % (Auto) 19.2 % 04/07/23 18:50 Cooke % (Auto) 6.9 % 04/07/23 18:50 Eos % (Auto) 0.6 % 04/07/23 18:50 Baso % (Auto) 0.4 % 04/07/23 18:50 Neut # (Auto) 9.73 10^3/uL (1.8-7.7) H 04/07/23 18:50 Lymph # (Auto) 2.6 10^3/uL (0.8-4.8) 04/07/23 18:50 Cooke # (Auto) 0.9 10^3/uL (0.2-0.9) 04/07/23 18:50 Eos # (Auto) 0.1 10^3/uL (0.0-0.8) 04/07/23 18:50 Baso # (Auto) 0.1 10^3/uL (0.0-0.1) 04/07/23 18:50 Nucleated RBC % (auto) 0 % 04/07/23 18:50 Nucleated RBCs # 0.0 /100WBC 04/07/23 18:50 PT 13.50 SECONDS (12.1-14.9) 04/07/23 18:50 INR 1.00 (0.8-1.2) 04/07/23 18:50 APTT 30.1 SECONDS (23.9-36.7) 04/07/23 18:50 Sodium 140 mmol/L (136-145) 04/07/23 18:50 Potassium 3.0 mmol/L (3.5-5.1) L 04/07/23 18:50 Chloride 105 mmol/L (98-107) 04/07/23 18:50 Carbon Dioxide 24 mmol/L (22-29) 04/07/23 18:50 Anion Gap 14.0 (5-19) 04/07/23 18:50 BUN 8 mg/dL (6-20) 04/07/23 18:50 Creatinine 0.6 mg/dL (0.5-0.9) 04/07/23 18:50 GFR Calculation 108.1 mL/min (90-130) 04/07/23 18:50 Glucose 107 mg/dL (65-115) 04/07/23 18:50 POC Glucose 131 mg/dL (70-110) H 04/07/23 18:24 Calculated Osmolality 289 mOsm/kg (285-295) 04/07/23 18:50 Calcium 8.8 mg/dL (8.5-10.5) 04/07/23 18:50 Total Bilirubin 0.2 mg/dL (0.15-1.2) 04/07/23 18:50 AST 17 U/L (0-32) 04/07/23 18:50 ALT 21 U/L (0-33) 04/07/23 18:50 Alkaline Phosphatase 92 U/L (35-105) 04/07/23 18:50 Total Protein 6.9 g/dL (6.6-8.7) 04/07/23 18:50 Albumin 4.2 g/dL (3.5-5.2) 04/07/23 18:50 Globulin 2.7 g/dL (1.3-4.6) 04/07/23 18:50 XR interpretation done by ED provider, pending radiology final review ED provider radiology interpretation(s): Right knee films do not show any evidence of acute fracture dislocation etc. at this time. Discharge Plan Discharge Patient Disposition: Home Clinical Impression: Contusion of right knee, History of hypoglycemia, Hypokalemia Condition: Stable Prescriptions: No Action Naprosyn 500 mg tablet 500 mg PO BID PRN (Reason: pain) Qty: 20 0RF hydrocodone-acetaminophen 5-325 mg tablet 1 tab PO Q6H PRN (Reason: pain) Qty: 8 0RF Topamax 200 mg Tablet 200 mg PO BID Wellbutrin XL 150 mg Tablet Extended Release 24 Hr 150 mg PO BEDTIME Lyrica 150 mg Capsule 150 mg PO BID Xarelto 20 mg Tablet 20 mg PO DAILY Rx Instructions: must administer with evening meal potassium chloride 20 mEq Tablet Extended Release 20 meq PO QAM escitalopram oxalate 20 mg tablet 40 mg PO BEDTIME 30 Days Qty: 60 1RF hydrocodone-acetaminophen 5-325 mg Tablet 1 tab PO Q6H PRN (Reason: prn severe pain) Qty: 15 0RF fentanyl 25 mcg/hr Patch 72 Hour 1 patch transdermal Q72H Qty: 5 0RF ondansetron 4 mg tablet,disintegrating 4 mg PO Q6H PRN (Reason: nausea and vomiting) Qty: 14 0RF Discharge Orders: Discharge ED (Routine); Ordered 04/07/23 Ordered By: Amari Sandoval Referrals: Sanford Pimentel MD [Primary Care Provider] - Discharge Diet: Usual diet Discharge Activity: Increase activity as tolerated Patient Instructions: Opioid Safety, Pain Management Activity Restrictions/Additional Instructions: As we discussed while you are in the emergency department. Your potassium is slightly low probably related to your use of Lasix recently despite your use of spironolactone. For the next 3 days we request that you take an additional 20 mg of potassium daily for 3 days and then discontinue that medication. We have also placed a consultation for endocrinology follow-up for you. We expect contact from the case management service to arrange that appointment for you. You should continue your usual prescribed medications and monitor your blood sugar carefully. You should also eat small meals frequently to help stabilize your fluctuating blood sugar levels. You should use ice pack for 10 to 15 minutes on your right knee to help with any pain or discomfort and if it continues to be painful or unstable or other symptoms you should return to this emergency department for reevaluation or follow-up with your primary care doctor. If it anytime you have worsening symptoms or other concerns you are welcome to return to the emergency department. Coding Level of Care Code ED Drafter Chief Design for Dejon Henson
[2023-04-07] MEDS: metoclopramide 5 mg/mL SDV 2 mL 10 MG IVP (18:50)
[2023-04-07 18:54] LABS: Basophils # 0.1 10^3/uL (0.0-0.1); Basophils % 0.4 %; Eosinophils # 0.1 10^3/uL (0.0-0.8); Eosinophils % 0.6 %; Hematocrit 38.6 % (36-47); Lymphocytes # 2.6 10^3/uL (0.8-4.8); Lymphocytes % 19.2 %; Mean Corpuscular HGB Conc 33.2 g/dL (30-55); Mean Corpuscular Hemoglobin 30.1 pg (27-33); Mean Corpuscular Volume 90.8 fl (85-98); Mean Platelet Volume 11.4 fL (7.4-10.4); Monocytes # 0.9 10^3/uL (0.2-0.9); Monocytes % 6.9 %; Neutrophils # 9.73 10^3/uL (1.8-7.7); Neutrophils % 72.5 %; Nucleated Red Blood Cells % 0 %; Platelet Count 252 10^3/cmm (157-399); Red Blood Count 4.25 10^6/uL (3.85-5.65); Red Cell Distribution Width 14.9 % (12.1-15.1); White Blood Count 13.42 10^3/uL (3.29-11.43)
[2023-04-07 19:03] VITALS: BP 149/76; PULSE 79; O2SAT 98
[2023-04-07 19:08] LABS: Partial Thromboplastin Time 30.1 SECONDS (23.9-36.7)
[2023-04-07 19:12] LABS: Alanine Aminotransferase 21 U/L (0-33); Albumin Level 4.2 g/dL (3.5-5.2); Alkaline Phosphatase 92 U/L (35-105); Aspartate Amino Transferase 17 U/L (0-32); Blood Urea Nitrogen 8 mg/dL (6-20); Calcium 8.8 mg/dL (8.5-10.5); Carbon Dioxide 24 mmol/L (22-29); Chloride 105 mmol/L (98-107); Creatinine Clr Calc Pharmacy 148.7131; Globulin 2.7 g/dL (1.3-4.6); Glomerular Filtration Rate 108.1 mL/min (90-130); Glucose 107 mg/dL (65-115); Osmolality Calculated 289 mOsm/kg (285-295); Sodium 140 mmol/L (136-145); Total Bilirubin 0.2 mg/dL (0.15-1.2); Total Protein 6.9 g/dL (6.6-8.7)
[2023-04-07 19:47] VITALS: RESP 18; O2SAT 100
[2023-04-07] MEDS: morphine 4 mg/mL SDV 1 mL IVP ×2 (19:47→21:20)
[2023-04-07 19:51] VITALS: BP 125/69; PULSE 73; RESP 18; O2SAT 98
[2023-04-07] MEDS: potassium chloride ER 20 mEq Tablet 40 MEQ PO (21:20)
--- NOTE | 2023-04-09 16:54 | PC.SOCIAL ---
Endocrinology Referral Referral message sent to clinic at this time. Clinic to contact patient with appt date/time.
== END 2023-04-07 21:28 | disposition home or self-care (01) ==
PROVIDERS: Emergency Provider Emergency Medicine; PCP Family Medicine
DX: S80.01XA Contusion of right knee, initial encounter (principal); E87.6 Hypokalemia; Z85.07 Personal history of malignant neoplasm of pancreas; W18.39XA Other fall on same level, initial encounter
CPT/HCPCS: 36416; 70450; 73562; 80053; 82962; 85025; 85610; 85730; 96374; 96375; 96376; 99285; J2270; J2765

== ENCOUNTER 2023-04-09 12:53 | Emergency (ER) | payer MEDICAID, SELFPAY ==
[2023-04-09 13:15] VITALS: BP 139/100; PULSE 72; RESP 15; TEMP 36.8; O2SAT 98
--- NOTE | 2023-04-09 13:17 | W.ED.LOWEXIN ---
HPI - Extremity Injury (Lower) General: Chief Complaint: Extremity Injury, Lower Stated Complaint: right knee/leg pain Time Seen by Provider: 04/09/23 13:17 History of Present Illness: 47-year-old female comes in today for complaints of persistent pain to the right knee. Patient had injured her knee 2 days ago and has been using ice and Tylenol with minimal relief of discomfort. Patient would like to see if she could get something for pain and a referral to orthopedics for follow-up. 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 Review of Systems General: Reports: 10 or more systems reviewed and unremarkable except in HPI and below Musc: Reports: extremity pain PFSH ED PFSH: Medical History History of depression History of factor V Leiden mutation History of hypoglycemia Pancreatic neoplasm Surgical History History of cholecystectomy Family History Mother CAD (coronary artery disease) Father Diabetes Social History Smoking and tobacco status: never smoked Alcohol intake: never Substance/Drug Use: never Physical Exam Const: COMMON NORMALS: alert HENMT: COMMON NORMALS: normocephalic HEAD & SCALP: normocephalic Neck/C-Spine: COMMON NORMALS: full ROM Resp: COMMON NORMALS: normal respiratory effort Back/Pelvis: COMMON NORMALS: thoracic and lumbar spine normal to inspection Extremity: RIGHT LOWER EXTREMITY: Yes knee joint (Superficial medial abrasion healing well, no redness or induration) Right knee: Yes inspection, Yes palpation (Medial tenderness), Yes ROM (Normal) and Yes neurovascular exam (Dorsal pedis pulse positive) and Yes lower leg (Lateral lower leg superficial abrasion, no redness or induration) Neuro: SENSORIUM/ORIENTATION: Yes alert Skin: TRAUMA: abrasion (Superficial, no redness or induration.) Course Vital Signs: Vital signs: Vital Signs Temperature 98.2 F 04/09/23 13:15 Pulse Rate 72 04/09/23 13:15 Respiratory Rate 15 04/09/23 13:15 Blood Pressure 139/100 04/09/23 13:15 Pulse Oximetry 98 04/09/23 13:15 Oxygen Delivery Me thod Room Air 04/09/23 13:15 MDM - Extremity Injury (Lower) Medical Decision Making 47-year-old female comes in today for injury to the right knee. Patient had been seen 2 days prior and x-rays at that time showed no abnormality. No significant redness or induration is noted to the knee. Patient does have some superficial abrasions that appear well. Distal pulses and sensation are intact. Patient reports increased swelling to the knee although exam looks unremarkable. Differential diagnosis includes not limited to contusion, abrasion, sprain, malingering. Placed in the case management a referral to orthopedics. Also gave patient the office number for orthopedics. Patient was written for hydrocodone 5?325, 10 tablets for pain medication at home. Also recommended the use of acetaminophen to control pain. Patient reported understanding of care plan and need for follow-up or return to ER for fever or new concerns. No radiology studies performed this visit Discharge Plan Discharge Patient Disposition: Home Clinical Impression: Injury of knee, right Qualifiers: Encounter type: subsequent encounter Qualified Code(s): S89.91XD - Unspecified injury of right lower leg, subsequent encounter Condition: Stable Prescriptions: New hydrocodone-acetaminophen 5-325 mg tablet 1 tab PO Q8H PRN (Reason: pain (scale score 7-10)) Qty: 10 0RF Discontinued hydrocodone-acetaminophen 5-325 mg tablet 1 tab PO Q6H PRN (Reason: pain) Qty: 8 0RF hydrocodone-acetaminophen 5-325 mg Tablet 1 tab PO Q6H PRN (Reason: prn severe pain) Qty: 15 0RF No Action Naprosyn 500 mg tablet 500 mg PO BID PRN (Reason: pain) Qty: 20 0RF Topamax 200 mg Tablet 200 mg PO BID Wellbutrin XL 150 mg Tablet Extended Release 24 Hr 150 mg PO BEDTIME Lyrica 150 mg Capsule 150 mg PO BID Xarelto 20 mg Tablet 20 mg PO DAILY Rx Instructions: must administer with evening meal potassium chloride 20 mEq Tablet Extended Release 20 meq PO QAM escitalopram oxalate 20 mg tablet 40 mg PO BEDTIME 30 Days Qty: 60 1RF fentanyl 25 mcg/hr Patch 72 Hour 1 patch transdermal Q72H Qty: 5 0RF ondansetron 4 mg tablet,disintegrating 4 mg PO Q6H PRN (Reason: nausea and vomiting) Qty: 14 0RF Discharge Orders: Discharge ED (Routine); Ordered 04/09/23 Ordered By: Claudio Silver Referrals: Rodríguez Jacques DO [Physician] - Sanford Pimnetel MD [Primary Care Provider] - Discharge Diet: Usual diet Discharge Activity: Increase activity as tolerated Patient Instructions: Opioid Safety, Pain Management Activity Restrictions/Additional Instructions: Continue with routine care. Follow-up with primary care for further instruction and evaluation. I will put a referral in for case management, but I recommend contacting the orthopedics office to see about an appointment. The number has been listed in your instructions. Use acetaminophen to control pain. Use hydrocodone for severe pain. Follow-up with primary care for refills. Coding Level of Care Code ED Bacteriologist Food for Dejon Henson
[2023-04-09] MEDS: HYDROcodone-acetaminophen 5-325 mg Tablet 1 TAB PO (13:32)
--- NOTE | 2023-04-09 16:55 | PC.SOCIAL ---
Ortho Referral Referral message sent to clinic at this time. Clinic to contact patient with appt date/time.
== END 2023-04-09 13:36 | disposition home or self-care (01) ==
PROVIDERS: Emergency Provider Nurse Practitioner Family; PCP Family Medicine
DX: Z85.07 Personal history of malignant neoplasm of pancreas (principal)
CPT/HCPCS: 99283

== ENCOUNTER 2023-05-06 13:16 | Emergency (ER) | payer MEDICAID, SELFPAY ==
[2023-05-06 13:24] VITALS: BP 192/143; PULSE 87; RESP 18; TEMP 36.8; O2SAT 95; BMI 36.6
[2023-05-06 14:27] VITALS: BP 164/97; PULSE 76; O2SAT 94
[2023-05-06 14:38] VITALS: RESP 20
[2023-05-06] MEDS: HYDROmorphone 1 mg/mL INJ 1 mL IVP (14:38)
[2023-05-06] MEDS: ondansetron 2 mg/ML SDV 2 mL 4 MG IVP (14:38)
[2023-05-06] MEDS: lactated ringers 1,000 ML 999 ML IV (14:42)
[2023-05-06 15:05] LABS: Glucose Point of Care 106 mg/dL (70-110)
--- NOTE | 2023-05-06 15:27 | W.ED.HA ---
HPI - Headache General: Chief Complaint: Nausea/Vomiting/Diarrhea Stated Complaint: migraine, NV, low blood sugar Time Seen by Provider: 05/06/23 13:58 History of Present Illness: This patient is a 47-year-old white female who presents to the emergency department stating that she has developed a migraine headache. She has had a headache for about 3 days now. She does have associated nausea and vomiting. She is concerned because she does get hypoglycemic when she starts vomiting. She states when her blood sugar gets under 50 she has seizures. Patient has not had any diarrhea. No fever. She states this does feel like one of her typical migraines. Associated symptoms: Reports nausea and vomiting Review of Systems General: Reports: 10 or more systems reviewed and unremarkable except in HPI and below GI: Reports: nausea and vomiting Neuro: Reports: headache(s) PFSH ED PFSH: Medical History History of depression History of factor V Leiden mutation History of hypoglycemia Pancreatic neoplasm Surgical History History of cholecystectomy Family History Mother CAD (coronary artery disease) Father Diabetes Social History Smoking and tobacco/nicotine status: never used tobacco/nicotine Alcohol intake: never Substance/Drug Use: never Physical Exam Const: COMMON NORMALS: patient oriented x3 and no limitations GENERAL APPEARANCE: cooperative HENMT: COMMON NORMALS: normocephalic, atraumatic, Normal nasal mucous membranes and turbinates present, moist oral mucous membranes and oropharynx normal HEAD & SCALP: normal to inspection, normocephalic and atraumatic FACE & SINUS: normal facial exam NOSE: Normal nasal mucous membranes and turbinates present Eye: COMMON NORMALS: Equal, round and reactive pupils present, EOMs intact bilaterally and conjunctivae normal GENERAL EYE: appearance normal, both eyes and all related structures CONJUNCTIVA: Yes conjunctivae normal PUPIL: Yes Equal, round and reactive pupils present Neck/C-Spine: COMMON NORMALS: supple and no JVD Chest: COMMONS NORMALS: normal inspection of the chest Resp: COMMON NORMALS: normal respiratory effort and clear to auscultation bilaterally AUSCULTATION: clear to auscultation bilaterally Cardio: COMMON NORMALS: no JVD, regular rate, regular rhythm, No gallops present (Cardio), No murmurs present (Cardio) and No rub (Cardio) RATE: regular rate RHYTHM: regular rhythm GI: COMMON NORMALS: Normal to inspection, nondistended, normoactive bowel sounds present, Soft to palpation and non-tender AUSCULTATION: Yes normoactive bowel sounds PALPATION: Yes Soft to palpation : COMMON NORMALS: Yes no CVA tenderness BLADDER/KIDNEY EXAM: Yes no CVA tenderness Back/Pelvis: COMMON NORMALS: no CVA tenderness and thoracic and lumbar spine normal to inspection Extremity: COMMON NORMALS: normal to inspection Neuro: COMMON NORMALS: patient oriented x3 and CN's II-XII intact bilaterally Psych: COMMON NORMALS: mental status grossly normal, Normal thought process present and cooperative THOUGHT PROCESS: Normal thought process present Skin: COMMON NORMALS: no rashes or lesions noted, turgor normal and no jaundice GENERAL SKIN EXAM: no rashes or lesions noted and turgor normal Course Vital Signs: Vital signs: Vital Signs Temperature 98.3 F 05/06/23 13:24 Pulse Rate 76 05/06/23 14:27 Respiratory Rate 20 H 05/06/23 14:38 Blood Pressure 164/97 05/06/23 14:27 Pulse Oximetry 94 05/06/23 14:27 Oxygen Delivery Me thod Room Air 05/06/23 13:24 MDM - Headache Medical Decision Making Accu-Chek was 106. Patient was given 4 mg of Zofran and 1 mg of Dilaudid IV. She is feeling better. The nausea has subsided. Patient was discharged in stable condition with prescriptions for Imitrex and Zofran. Recommended she follow-up with her primary care provider as needed. Lab Data Laboratory Results POC Glucose 106 mg/dL (70-110) 05/06/23 15:00 No radiology studies performed this visit Discharge Plan Discharge Patient Disposition: Home Clinical Impression: Migraine Condition: Stable Prescriptions: New Imitrex 50 mg tablet See Rx Instructions .ROUTE .COMPLEX Qty: 10 0RF Rx Instructions: take 1 tab at onset of headache; if no relief may repeat 1 tab after at least 2 hrs; max = 4 tabs/24 hr ondansetron HCl 4 mg tablet 4 mg PO Q6H PRN (Reason: nausea and vomiting) Qty: 20 0RF No Action topiramate [Topamax] 200 mg Tablet 200 mg PO BEDTIME bupropion HCl [Wellbutrin XL] 150 mg Tablet Extended Release 24 Hr 150 mg PO BEDTIME Xarelto 20 mg Tablet 20 mg PO DAILY Rx Instructions: must administer with evening meal methocarbamol 500 mg tablet 1,500 mg PO QID PRN (Reason: Muscle Spasm) gabapentin 600 mg tablet 600 mg PO TID PRN (Reason: Pain) ondansetron HCl 8 mg tablet 8 mg PO BID PRN (Reason: Nausea And Vomiting) fluconazole 200 mg tablet 200 mg PO Q7D PRN (Reason: unknown) sumatriptan succinate 50 mg tablet See Rx Instructions .ROUTE .COMPLEX Rx Instructions: TAKE ONE TABLET BY MOUTH AT ONSET OF MIGRANE MAY REPEAT AFTER TWO (2) HOURS IF HEADACHE RETURNS oxycodone-acetaminophen 10-325 mg tablet 1 tab PO Q8H PRN (Reason: Pain) Rx Instructions: 30d/s (rx filled 04/27/23) gabapentin 800 mg tablet 800 mg PO TID PRN (Reason: unknown) doxepin 100 mg capsule 100 mg PO BEDTIME PRN (Reason: unknown) ergocalciferol (vitamin D2) [Vitamin D2] 1,250 mcg (50,000 unit) capsule 50,000 unit PO Q7D Rx Instructions: on mon oxycodone 5 mg tablet 5 mg PO Q6H PRN (Reason: Pain) Rx Instructions: 7d/s (rx filled 05/03/23) pregabalin 75 mg capsule 75 mg PO BID carvedilol 25 mg tablet 25 mg PO BID Celexa 10 mg Tablet 10 - 20 mg PO BEDTIME spironolactone 25 mg tablet 25 mg PO BEDTIME Glucagon Emergency Kit (human) 1 mg recon soln See Rx Instructions .ROUTE .COMPLEX Rx Instructions: USE ONE INJECTION NEEDED FOR LOW BLOOD SUGAR MAY REPEAT NEEDED EVERY 15 MINUTES EpiPen 2-Diogenes 0.3 mg/0.3 mL Auto-Injector 0.3 mg IM . DIRECTED PRN (Reason: Allergic Reaction) Claritin 10 mg Tablet 10 mg PO BEDTIME Discharge Orders: Discharge ED (Routine); Ordered 05/06/23 Ordered By: Brando Gómez Referrals: Sanford Pimentel MD [Primary Care Provider] - Patient Instructions: Opioid Safety, Pain Management Coding Level of Care Code ED Aluminizer for Dejon Henson
[2023-05-06 15:40] VITALS: BP 176/77; PULSE 82; O2SAT 96
== END 2023-05-06 15:42 | disposition home or self-care (01) ==
PROVIDERS: Emergency Provider Emergency Medicine; PCP Family Medicine
DX: G43.909 Migraine, unspecified, not intractable, without status migrainosus (principal); Z85.07 Personal history of malignant neoplasm of pancreas
CPT/HCPCS: 36416; 82962; 96361; 96374; 96375; 99284; J1170; J2405; J7120

== ENCOUNTER 2023-05-10 21:34 | Emergency (ER) | payer MEDICAID, SELFPAY ==
[2023-05-10 21:36] VITALS: BP 146/107; PULSE 71; RESP 18; TEMP 36.6; O2SAT 96; BMI 40.3
--- NOTE | 2023-05-10 21:38 | XRR_ITS ---
PROCEDURE INFORMATION: Exam: XR Right Knee Exam date and time: 05/10/2023 10:02 PM Age: 47 years old Clinical indication: Injury or trauma; Fall; Other: Unknown TECHNIQUE: Imaging protocol: Radiologic exam of the right knee. Views: 3 views. COMPARISON: CR (LOW EXM, ) 04/07/2023 7:09 PM FINDINGS: Bones/joints: Normal. Soft tissues: Normal. XR/XR knee RT 3V* [id number] IMPRESSION: No acute findings.
--- NOTE | 2023-05-10 21:38 | XRR_ITS ---
PROCEDURE INFORMATION: Exam: XR Right Ankle Exam date and time: 05/10/2023 10:02 PM Age: 47 years old Clinical indication: Injury or trauma; Fall; Other: Unknown TECHNIQUE: Imaging protocol: Radiologic exam of the right ankle. Views: 3 or more views. COMPARISON: CR (LOW EXM, ) 04/07/2023 7:09 PM FINDINGS: Bones/joints: Normal. Soft tissues: Normal. XR/XR ankle RT min 3V* [id number] IMPRESSION: No acute findings.
--- NOTE | 2023-05-10 21:43 | ED_ITS ---
HPI - General Adult General: Chief complaint: Extremity Injury, Lower Stated complaint: right knee pain Time Seen by Provider: 05/10/23 21:35 Source: patient and EMS Mode of arrival: EMS Limitations: no limitations History of Present Illness: 47-year-old female history of seizures states she had a seizure in her driveway when she fell she did hit her right knee. She states she is injured that knee b efrodriguez actually has follow-up coming up for her knee pain with the orthopedist states pain is sharp does hurt with walking she is able to bear weight. She denies hitting her head denies any headache Associated symptoms: Deny chest pain, dyspnea, headache(s), nausea, rash or vomiting Review of Systems Const: Denies: fever(s), chills, body aches or change in appetite Eyes: Denies: blurry vision or eye discomfort ENMT: Denies: throat pain or dental pain Card: Denies: chest pain Resp: Denies: dyspnea GI: Denies: abdominal pain, nausea, vomiting or diarrhea Musc: Reports: extremity pain; Denies: neck pain or back pain Skin/Breast: Denies: rash Neuro: Reports: seizure-like activity; Denies: headache(s) PFSH ED PFSH: Medical History History of depression History of factor V Leiden mutation History of hypoglycemia Pancreatic neoplasm Surgical History History of cholecystectomy Family History Mother CAD (coronary artery disease) Father Diabetes Social History Smoking and tobacco/nicotine status: never used tobacco/nicotine Alcohol intake: never Substance/Drug Use: never Physical Exam Const: COMMON NORMALS: no acute distress, patient oriented x3 and healthy appe aring HENMT: COMMON NORMALS: normocephalic and atraumatic HEAD & SCALP: normocephalic and atraumatic Eye: COMMON NORMALS: Equal, round and reactive pupils present and EOMs intact bilaterally PUPIL: Yes Equal, round and reactive pupils present Neck/C-Spine: COMMON NORMALS: full ROM and supple Chest: COMMONS NORMALS: normal inspection of the chest Resp: COMMON NORMALS: normal respiratory effort Cardio: COMMON NORMALS: regular rate, regular rhythm and No murmurs present (Cardio) RATE: regular rate RHYTHM: regular rhythm Extremity: NARRATIVE EXTREMITY EXAM: Contusion noted to right knee has some tenderness to touch no obvious deformity. Neuro: COMMON NORMALS: patient oriented x3, moves all extremities and no focal motor deficits Psych: COMMON NORMALS: mental status grossly normal, Normal thought process present and cooperative THOUGHT PROCESS: Normal thought process present Skin: COMMON NORMALS: no rashes or lesions noted and no wounds GENERAL SKIN EXAM: no rashes or lesions noted Course Vital Signs: Vital signs: Vital Signs Temperature 97.9 F 05/10/23 21:36 Pulse Rate 71 05/10/23 21:36 Respiratory Rate 18 05/10/23 21:36 Blood Pressure 146/107 05/10/23 21:36 Pulse Oximetry 96 05/10/23 21:36 Oxygen Delivery Me thod Room Air 05/10/23 21:36 MDM - General Adult Medical Decision Making Patient presents with right knee pain likely a sprain from a fall x-ray shows no fracture she has orthopedic follow-up next week we will immobilize her have her use crutches only weight-bear as tolerated return if worsening. Medical Records I reviewed the patient's medical records. Lab Data I reviewed the patient's lab results. Radiology Impressions Ankle X-Ray 05/10/23 21:38 IMPRESSION: No acute findings. 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 Knee X-Ray 05/10/23 21:38 IMPRESSION: No acute findings. All radiology interpretation(s) finalized by discharge Discharge Plan Discharge Patient Disposition: Home Clinical Impression: Knee sprain Condition: Stable Prescriptions: New Naprosyn 500 mg tablet 500 mg PO BID PRN (Reason: pain) Qty: 20 0RF No Action topiramate [Topamax] 200 mg Tablet 200 mg PO BEDTIME bupropion HCl [Wellbutrin XL] 150 mg Tablet Extended Release 24 Hr 150 mg PO BEDTIME Xarelto 20 mg Tablet 20 mg PO DAILY Rx Instructions: must administer with evening meal methocarbamol 500 mg tablet 1,500 mg PO QID PRN (Reason: Muscle Spasm) gabapentin 600 mg tablet 600 mg PO TID PRN (Reason: Pain) ondansetron HCl 8 mg tablet 8 mg PO BID PRN (Reason: Nausea And Vomiting) fluconazole 200 mg tablet 200 mg PO Q7D PRN (Reason: unknown) sumatriptan succinate 50 mg tablet See Rx Instructions .ROUTE .COMPLEX Rx Instructions: TAKE ONE TABLET BY MOUTH AT ONSET OF MIGRANE MAY REPEAT AFTER TWO (2) HOURS IF HEADACHE RETURNS oxycodone-acetaminophen 10-325 mg tablet 1 tab PO Q8H PRN (Reason: Pain) Rx Instructions: 30d/s (rx filled 04/27/23) gabapentin 800 mg tablet 800 mg PO TID PRN (Reason: unknown) doxepin 100 mg capsule 100 mg PO BEDTIME PRN (Reason: unknown) ergocalciferol (vitamin D2) [Vitamin D2] 1,250 mcg (50,000 unit) capsule 50,000 unit PO Q7D Rx Instructions: on mon oxycodone 5 mg tablet 5 mg PO Q6H PRN (Reason: Pain) Rx Instructions: 7d/s (rx filled 05/03/23) pregabalin 75 mg capsule 75 mg PO BID carvedilol 25 mg tablet 25 mg PO BID Celexa 10 mg Tablet 10 - 20 mg PO BEDTIME spironolactone 25 mg tablet 25 mg PO BEDTIME Glucagon Emergency Kit (human) 1 mg recon soln See Rx Instructions .ROUTE .COMPLEX Rx Instructions: USE ONE INJECTION NEEDED FOR LOW BLOOD SUGAR MAY REPEAT NEEDED EVERY 15 MINUTES EpiPen 2-Diogenes 0.3 mg/0.3 mL Auto-Injector 0.3 mg IM . DIRECTED PRN (Reason: Allergic Reaction) Claritin 10 mg Tablet 10 mg PO BEDTIME Imitrex 50 mg tablet See Rx Instructions .ROUTE .COMPLEX Qty: 10 0RF Rx Instructions: take 1 tab at onset of headache; if no relief may repeat 1 tab after at least 2 hrs; max = 4 tabs/24 hr ondansetron HCl 4 mg tablet 4 mg PO Q6H PRN (Reason: nausea and vomiting) Qty: 20 0RF Discharge Orders: Discharge ED (Routine); Ordered 05/10/23 Ordered By: Josefina Don Referrals: Sanford Pimentel MD [Primary Care Provider] - Discharge Diet: Advance as tolerated Discharge Activity: Increase activity as tolerated Patient Instructions: Knee Sprain (ED), Knee Immobilizer (ED) Coding Level of Care Code ED Aerospace Mechanic for Dejon Henson
[2023-05-10] MEDS: HYDROcodone-acetaminophen 7.5-325 mg Tablet 1 TAB PO (23:12)
== END 2023-05-10 23:41 | disposition home or self-care (01) ==
PROVIDERS: Emergency Provider Emergency Medicine; PCP Family Medicine
DX: S83.91XA Sprain of unspecified site of right knee, initial encounter (principal); Z85.07 Personal history of malignant neoplasm of pancreas; W18.39XA Other fall on same level, initial encounter
CPT/HCPCS: 73562; 73610; 99283; E0114

== ENCOUNTER 2023-05-11 04:23 | Emergency (ER) | payer MEDICAID, SELFPAY ==
[2023-05-11 04:26] VITALS: BP 186/110; PULSE 91; RESP 18; TEMP 36.6; O2SAT 100; BMI 40.3
--- NOTE | 2023-05-11 04:36 | ED_ITS ---
HPI - Extremity Problem General: Chief complaint: Extremity Problem,Nontraumatic Stated complaint: Leg Pain Time Seen by Provider: 05/11/23 04:32 Source: patient Mode of arrival: ambulatory Limitations: no limitations History of Present Illness: 47-year-old female who was seen earlier tonight with a knee sprain she has been waiting in the waiting room for her to come pick her up for hours and states she had nothing to take for pain and needed something for her knee pain for ride back home denies any new injuries has no new complaints Associated symptoms: Deny chest pain, fever(s) or rash Review of Systems Const: Denies: fever(s), chills, body aches or change in appetite ENMT: Denies: throat pain or dental pain Card: Denies: chest pain Resp: Denies: dyspnea GI: Denies: abdominal pain, nausea, vomiting or diarrhea Musc: Reports: extremity pain; Denies: neck pain or back pain Skin/Breast: Denies: rash Neuro: Denies: headache(s) PFSH ED PFSH: Medical History History of depression History of factor V Leiden mutation History of hypoglycemia Pancreatic neoplasm Surgical History History of cholecystectomy Family History Mother CAD (coronary artery disease) Father Diabetes Social History Smoking and tobacco/nicotine status: never used tobacco/nicotine Alcohol intake: never Substance/Drug Use: never Physical Exam Const: COMMON NORMALS: no acute distress and patient oriented x3 HENMT: COMMON NORMALS: normocephalic HEAD & SCALP: normocephalic Chest: COMMONS NORMALS: normal inspection of the chest Resp: COMMON NORMALS: normal respiratory effort GI: INSPECTION: Yes normal to inspection Extremity: NARRATIVE EXTREMITY EXAM: Slight tenderness to the knee distal pulses intact no obvious deformity Neuro: COMMON NORMALS: patient oriented x3 Psych: COMMON NORMALS: mental status grossly normal Skin: COMMON NORMALS: no rashes or lesions noted GENERAL SKIN EXAM: no rashes or lesions noted Course Vital Signs: Vital signs: Vital Signs Temperature 97.9 F 05/11/23 04:26 Pulse Rate 91 05/11/23 04:26 Respiratory Rate 18 05/11/23 04:26 Blood Pressure 186/110 05/11/23 04:26 Pulse Oximetry 100 05/11/23 04:26 MDM - Extremity (Nontraumatic) Medical Decision Making Patient presents with knee pain patient given a pain pill here she is stable for discharge follow-up as scheduled. Medical Records I reviewed the patient's medical records. No radiology studies performed this visit Discharge Plan Discharge Patient Disposition: Home Clinical Impression: Knee sprain Condition: Stable Prescriptions: No Action Naprosyn 500 mg tablet 500 mg PO BID PRN (Reason: pain) Qty: 20 0RF topiramate [Topamax] 200 mg Tablet 200 mg PO BEDTIME bupropion HCl [Wellbutrin XL] 150 mg Tablet Extended Release 24 Hr 150 mg PO BEDTIME Xarelto 20 mg Tablet 20 mg PO DAILY Rx Instructions: must administer with evening meal methocarbamol 500 mg tablet 1,500 mg PO QID PRN (Reason: Muscle Spasm) gabapentin 600 mg tablet 600 mg PO TID PRN (Reason: Pain) ondansetron HCl 8 mg tablet 8 mg PO BID PRN (Reason: Nausea And Vomiting) fluconazole 200 mg tablet 200 mg PO Q7D PRN (Reason: unknown) sumatriptan succinate 50 mg tablet See Rx Instructions .ROUTE .COMPLEX Rx Instructions: TAKE ONE TABLET BY MOUTH AT ONSET OF MIGRANE MAY REPEAT AFTER TWO (2) HOURS IF HEADACHE RETURNS oxycodone-acetaminophen 10-325 mg tablet 1 tab PO Q8H PRN (Reason: Pain) Rx Instructions: 30d/s (rx filled 04/27/23) gabapentin 800 mg tablet 800 mg PO TID PRN (Reason: unknown) doxepin 100 mg capsule 100 mg PO BEDTIME PRN (Reason: unknown) ergocalciferol (vitamin D2) [Vitamin D2] 1,250 mcg (50,000 unit) capsule 50,000 unit PO Q7D Rx Instructions: on wed oxycodone 5 mg tablet 5 mg PO Q6H PRN (Reason: Pain) Rx Instructions: 7d/s (rx filled 05/03/23) pregabalin 75 mg capsule 75 mg PO BID carvedilol 25 mg tablet 25 mg PO BID Celexa 10 mg Tablet 10 - 20 mg PO BEDTIME spironolactone 25 mg tablet 25 mg PO BEDTIME Glucagon Emergency Kit (human) 1 mg recon soln See Rx Instructions .ROUTE .COMPLEX Rx Instructions: USE ONE INJECTION NEEDED FOR LOW BLOOD SUGAR MAY REPEAT NEEDED EVERY 15 MINUTES EpiPen 2-Diogenes 0.3 mg/0.3 mL Auto-Injector 0.3 mg IM . DIRECTED PRN (Reason: Allergic Reaction) Claritin 10 mg Tablet 10 mg PO BEDTIME Imitrex 50 mg tablet See Rx Instructions .ROUTE .COMPLEX Qty: 10 0RF Rx Instructions: take 1 tab at onset of headache; if no relief may repeat 1 tab after at least 2 hrs; max = 4 tabs/24 hr ondansetron HCl 4 mg tablet 4 mg PO Q6H PRN (Reason: nausea and vomiting) Qty: 20 0RF Discharge Orders: Discharge ED (Routine); Ordered 05/11/23 Ordered By: Josefina Don Referrals: Sanford Pimentel MD [Primary Care Provider] - Discharge Diet: Advance as tolerated Discharge Activity: Resume usual activity Patient Instructions: Knee Pain (ED) Coding Level of Care Code ED Geochemical Laboratory Technician for Dejon Henson
[2023-05-11] MEDS: HYDROcodone-acetaminophen 5-325 mg Tablet 1 TAB PO (04:39)
[2023-05-11 04:46] VITALS: BP 186/110; PULSE 91; RESP 18; TEMP 36.6; O2SAT 100
== END 2023-05-11 04:48 | disposition home or self-care (01) ==
PROVIDERS: Emergency Provider Emergency Medicine; PCP Family Medicine
DX: S83.91XA Sprain of unspecified site of right knee, initial encounter (principal); Z85.07 Personal history of malignant neoplasm of pancreas; X58.XXXA Exposure to other specified factors, initial encounter
CPT/HCPCS: 99283

== ENCOUNTER 2023-06-03 19:41 | Emergency (ER) | payer MEDICAID, SELFPAY ==
[2023-06-03 19:47] VITALS: BP 166/92; PULSE 86; RESP 18; TEMP 36.6; O2SAT 100; BMI 38.7
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
--- NOTE | 2023-06-03 19:49 | XRR_ITS ---
PROCEDURE INFORMATION: Exam: XR Right Knee Exam date and time: 06/03/2023 8:00 PM Age: 47 years old Clinical indication: Injury or trauma; Blunt trauma; Right; Patient HX: Fall at home. C/O RT knee pain. TECHNIQUE: Imaging protocol: Radiologic exam of the right knee. Views: 3 views. COMPARISON: CR (LOW EXM, ) 05/10/2023 10:02 PM FINDINGS: Bones/joints: Normal. Soft tissues: Normal. XR/XR knee RT 3V* [id number] IMPRESSION: No acute findings.
[2023-06-03] MEDS: levETIRAcetam 750 MG in sodium chloride 0.9% (100 ml) 100 ML 430 MG IV (20:00)
--- NOTE | 2023-06-03 20:21 | ED_ITS ---
HPI - Seizure General: Chief Complaint: Seizure Stated Complaint: Hypoglycemia/seizure like activity Time Seen by Provider: 06/03/23 19:43 Source: patient and EMS Mode of arrival: EMS Limitations: no limitations History of Present Illness: HPI Narrative: 47-year-old female who has a history of seizures states she also history of hypoglycemia. States she had 3 seizures at home her thought she might be hypoglycemic did give her glucose EMS arrived her glucose was 204 with them she is awake and alert she denies any headache denies hitting her head she states she does have some right hip and right knee pain she hit the table with her hip. Associated symptoms: Deny chest pain, chills or fever(s) Review of Systems Const: Denies: fever(s), chills, body aches or change in appetite Eyes: Denies: blurry vision or eye discomfort ENMT: Denies: throat pain or dental pain Card: Denies: chest pain Resp: Denies: dyspnea GI: Denies: abdominal pain, nausea, vomiting or diarrhea Musc: Reports: extremity pain; Denies: neck pain or back pain Skin/Breast: Denies: rash Neuro: Reports: seizure-like activity; Denies: headache(s) PFSH ED PFSH: Medical History History of depression History of factor V Leiden mutation History of hypoglycemia Pancreatic neoplasm Surgical History History of cholecystectomy Family History Mother CAD (coronary artery disease) Father Diabetes Social History Smoking and tobacco/nicotine status: never used tobacco/nicotine Alcohol intake: never Substance/Drug Use: never Physical Exam Const: COMMON NORMALS: no acute distress, patient oriented x3 and healthy appearing HENMT: COMMON NORMALS: normocephalic and atraumatic HEAD & SCALP: normocephalic and atraumatic Eye: COMMON NORMALS: Equal, round and reactive pupils present and EOMs intact bilaterally PUPIL: Yes Equal, round and reactive pupils present Neck/C-Spine: COMMON NORMALS: full ROM and supple Chest: COMMONS NORMALS: normal inspection of the chest and normal palpation of entire chest wall Resp: COMMON NORMALS: normal respiratory effort, No retractions, No use of accessory muscles and clear to auscultation bilaterally AUSCULTATION: clear to auscultation bilaterally Cardio: COMMON NORMALS: regular rate, regular rhythm and No murmurs present (Cardio) RATE: regular rate RHYTHM: regular rhythm GI: COMMON NORMALS: Normal to inspection, nondistended, normoactive bowel sounds present, Soft to palpation, non-tender and no masses PALPATION: Yes Soft to palpation Extremity: COMMON NORMALS: normal to inspection and full ROM Neuro: COMMON NORMALS: patient oriented x3, moves all extremities and no focal motor deficits Psych: COMMON NORMALS: mental status grossly normal, Normal thought process present and cooperative THOUGHT PROCESS: Normal thought process present Skin: COMMON NORMALS: no rashes or lesions noted and no wounds GENERAL SKIN EXAM: no rashes or lesions noted Course Vital Signs: Vital signs: Vital Signs Temperature 98 F 06/03/23 19:47 Pulse Rate 79 06/03/23 21:30 Respiratory Rate 18 06/03/23 21:30 Blood Pressure 126/81 06/03/23 21:30 Pulse Oximetry 100 06/03/23 21:30 Oxygen Delivery Me thod Room Air 06/03/23 21:30 MDM - Seizure MDM Narrative Medical decision making narrative: Patient presents here with seizure she has been well-appearing here with seizure-free her glucose here has been stable x-rays are normal she not hit her head she had a recent head CT is normal she is stable for discharge she is to follow-up with her PCP and return if worsening she understands agrees to plan. Lab Data 06/03/23 19:59 Labs: Radiology Impressions Hip/Pelvis X-Ray 06/03/23 19:49 IMPRESSION: No acute findings. Knee X-Ray 06/03/23 19:49 IMPRESSION: No acute findings. Laboratory Results Sodium 137 mmol/L (136-145) 06/03/23 19:59 Potassium 3.9 mmol/L (3.5-5.1) 06/03/23 19:59 Chloride 108 mmol/L (98-107) H 06/03/23 19:59 Carbon Dioxide 13 mmol/L (22-29) L 06/03/23 19:59 Anion Gap 19.9 (5-19) H 06/03/23 19:59 BUN 10 mg/dL (6-20) 06/03/23 19:59 Creatinine 0.7 mg/dL (0.5-0.9) 06/03/23 19:59 GFR Calculation 90.5 mL/min (90-130) 06/03/23 19:59 Glucose 117 mg/dL (65-115) H 06/03/23 19:59 POC Glucose 108 mg/dL (70-110) 06/03/23 21:51 Calculated Osmolality 284 mOsm/kg (285-295) L 06/03/23 19:59 Calcium 9.1 mg/dL (8.5-10.5) 06/03/23 19:59 All radiology interpretation(s) finalized by discharge Discharge Plan Discharge Patient Disposition: Home Clinical Impression: Seizure Condition: Stable Prescriptions: No Action Naprosyn 500 mg tablet 500 mg PO BID PRN (Reason: pain) Qty: 20 0RF topiramate [Topamax] 200 mg Tablet 200 mg PO BEDTIME bupropion HCl [Wellbutrin XL] 150 mg Tablet Extended Release 24 Hr 150 mg PO BEDTIME Xarelto 20 mg Tablet 20 mg PO DAILY Rx Instructions: must administer with evening meal methocarbamol 500 mg tablet 1,500 mg PO QID PRN (Reason: Muscle Spasm) gabapentin 600 mg tablet 600 mg PO TID PRN (Reason: Pain) ondansetron HCl 8 mg tablet 8 mg PO BID PRN (Reason: Nausea And Vomiting) fluconazole 200 mg tablet 200 mg PO Q7D PRN (Reason: unknown) sumatriptan succinate 50 mg tablet See Rx Instructions .ROUTE .COMPLEX Rx Instructions: TAKE ONE TABLET BY MOUTH AT ONSET OF MIGRANE MAY REPEAT AFTER TWO (2) HOURS IF HEADACHE RETURNS oxycodone-acetaminophen 10-325 mg tablet 1 tab PO Q8H PRN (Reason: Pain) Rx Instructions: 30d/s (rx filled 04/27/23) gabapentin 800 mg tablet 800 mg PO TID PRN (Reason: unknown) doxepin 100 mg capsule 100 mg PO BEDTIME PRN (Reason: unknown) ergocalciferol (vitamin D2) [Vitamin D2] 1,250 mcg (50,000 unit) capsule 50,000 unit PO Q7D Rx Instructions: on mon oxycodone 5 mg tablet 5 mg PO Q6H PRN (Reason: Pain) Rx Instructions: 7d/s (rx filled 05/03/23) pregabalin 75 mg capsule 75 mg PO BID carvedilol 25 mg tablet 25 mg PO BID Celexa 10 mg Tablet 10 - 20 mg PO BEDTIME spironolactone 25 mg tablet 25 mg PO BEDTIME Glucagon Emergency Kit (human) 1 mg recon soln See Rx Instructions .ROUTE .COMPLEX Rx Instructions: USE ONE INJECTION NEEDED FOR LOW BLOOD SUGAR MAY REPEAT NEEDED EVERY 15 MINUTES EpiPen 2-Diogenes 0.3 mg/0.3 mL Auto-Injector 0.3 mg IM . DIRECTED PRN (Reason: Allergic Reaction) Claritin 10 mg Tablet 10 mg PO BEDTIME Imitrex 50 mg tablet See Rx Instructions .ROUTE .COMPLEX Qty: 10 0RF Rx Instructions: take 1 tab at onset of headache; if no relief may repeat 1 tab after at least 2 hrs; max = 4 tabs/24 hr ondansetron HCl 4 mg tablet 4 mg PO Q6H PRN (Reason: nausea and vomiting) Qty: 20 0RF Discharge Orders: Discharge ED (Routine); Ordered 06/03/23 Ordered By: Josefina Don Referrals: Sanford Pimentel MD [Primary Care Provider] - 1-3 days Discharge Diet: Advance as tolerated Discharge Activity: Resume usual activity Patient Instructions: Recurrent Seizures in Adults (ED) Coding Level of Care Code ED Poultry Feed Supervisor for Dejon Henson
[2023-06-03 20:33] LABS: Blood Urea Nitrogen 10 mg/dL (6-20); Calcium 9.1 mg/dL (8.5-10.5); Carbon Dioxide 13 mmol/L (22-29); Chloride 108 mmol/L (98-107); Glomerular Filtration Rate 90.5 mL/min (90-130); Glucose 117 mg/dL (65-115); Osmolality Calculated 284 mOsm/kg (285-295); Sodium 137 mmol/L (136-145)
[2023-06-03 20:37] LABS: Anion Gap 19.9 (5-19); Potassium 3.9 mmol/L (3.5-5.1)
[2023-06-03 20:46] LABS: Glucose Point of Care 100 mg/dL (70-110)
[2023-06-03 21:00] VITALS: RESP 14; O2SAT 99
[2023-06-03] MEDS: morphine 4 mg/mL SDV 1 mL IVP (21:00)
[2023-06-03] MEDS: ondansetron 2 mg/ML SDV 2 mL 4 MG IVP (21:00)
[2023-06-03 21:18] VITALS: BP 143/73; PULSE 77; RESP 18; O2SAT 95
[2023-06-03 21:30] VITALS: BP 126/81; PULSE 79; RESP 18; O2SAT 100
[2023-06-03 21:54] LABS: Glucose Point of Care 108 mg/dL (70-110)
[2023-06-03 22:17] VITALS: BP 144/84; PULSE 81; RESP 18; O2SAT 95
== END 2023-06-03 22:18 | disposition home or self-care (01) ==
PROVIDERS: Emergency Provider Emergency Medicine; PCP Family Medicine
DX: R56.9 Unspecified convulsions (principal); Z85.07 Personal history of malignant neoplasm of pancreas
CPT/HCPCS: 36415; 36416; 73502; 73562; 80048; 82962; 96365; 96375; 99284; J1953; J2270; J2405

== ENCOUNTER 2023-06-09 14:27 | Emergency (ER) | payer MEDICAID, SELFPAY ==
[2023-06-09] VITALS (9 sets, daily range): BP systolic 147–180; BP diastolic 74–116; PULSE 79–92; RESP 17–18; O2SAT 98–100; BMI 38.7
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
--- NOTE | 2023-06-09 14:39 | PC.NURSE ---
[facility] PD CALLED. PROVIDER WANTED TO SPEAK DIRECTLY TO DEPUTY. DEPUTY TRANSFERRED TO PROVIDER FOR PHONE CALL.
[2023-06-09] MEDS: fentaNYL 50 mcg/mL INJ 2mL IVP (15:29)
--- NOTE | 2023-06-09 15:35 | PC.PHAR ---
pt states she takes care of her own medications-pt states she is still taking celexa 40mg hs rx [facility] [phone] states last filled january 2023-pt states she is still taking carvedilol 25mg hs rx last filled 01/23/23 30d/s 25mg bid-pt states she takes doxepin 100mg hs prn rx last filled 04/11/23 30d/s-pt states she is no longer taking vitamin d2 50,000 q7d rx last filled 04/25/23 28d/s-pt states she takes gabapentin 800mg (last filled 06/08/23 30d/s)and 600mg (rx last filled 05/19/23 30d/s) tid prn-imitrex 50mg filled 05/26/23 and imitrex 100mg filled 05/08/23 pt states took all the 50mg and now only has 100mg left-pt states she takes topamax 200mg hs rx last filled 01/06/23 30d/s 400mg bid-pt states she is taking xarelto 20mg hs rx last filled 10/26/22 30d/s pt states she gets samples from her dr and is still taking-[facility] filled percocet 7.5-325mg q6h prn 05/26/23 30d/s and oxycontin er 10mg bid on 05/26/23 30d/s pt states the dr wrote it wrong states he was suppose to give her percocet 10-325mg qid prn only states she is taking the oxycontin er 10mg back to her dr-ext also shows oxycodone 5mg q6h prn filled 05/03/23 7d/s,percocet 10/325mg 1 tab po q8h prn filled 04/27/23 30d/s-norco 5-325mg po q6h prn filled 04/24/23 7d/s,percocet 7.5-325mg filled 03/30/23 30d/s and oxycontin er 10mg filled 03/30/23 30d/s-
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
[2023-06-09] MEDS: iohexol 350 mg/mL 500 mL Btl (per mL) IV (15:48)
[2023-06-09] MEDS: ceFAZolin 1,000 MG in sodium chloride 0.9% (plus) 50 ML 100 MG IV (15:51)
[2023-06-09 16:05] LABS: Basophils % 0.4 %; Eosinophils # 0.1 10^3/uL (0.0-0.8); Eosinophils % 0.8 %; Hematocrit 38.9 % (36-47); Lymphocytes # 2.4 10^3/uL (0.8-4.8); Lymphocytes % 21.9 %; Mean Corpuscular HGB Conc 31.4 g/dL (30-55); Mean Corpuscular Hemoglobin 30.5 pg (27-33); Mean Corpuscular Volume 97.3 fl (85-98); Mean Platelet Volume 12.1 fL (7.4-10.4); Monocytes # 0.8 10^3/uL (0.2-0.9); Monocytes % 7.3 %; Neutrophils # 7.69 10^3/uL (1.8-7.7); Neutrophils % 69.3 %; Nucleated Red Blood Cells % 0 %; Platelet Count 202 10^3/cmm (157-399); Red Cell Distribution Width 16.3 % (12.1-15.1); White Blood Count 11.09 10^3/uL (3.29-11.43)
[2023-06-09] MEDS: oxyCODONE-APAP 5-325 mg Tablet 1 TAB PO (16:33)
[2023-06-09 17:19] LABS: Glucose Point of Care 143 mg/dL (70-110)
[2023-06-09] MEDS: lidocaine-epi 1% 20 mL INJ INJECTION (17:19)
== END 2023-06-09 17:55 | disposition home or self-care (01) ==
PROVIDERS: Emergency Provider Family Medicine; PCP Family Medicine
DX: S71.132A Puncture wound without foreign body, left thigh, initial encounter (principal); W32.0XXA Accidental handgun discharge, initial encounter
CPT/HCPCS: 12002; 36415; 36416; 73706; 82962; 85025; 96365; 96375; 99285; 99291; J0690; J3010; Q9967